=== PATIENT | male | born 1990 | race Caucasian/White ===

== ENCOUNTER 2019-12-03 06:11 | Day surgery (SDC) | payer SELFPAY ==
[2019-12-02 11:48] LABS: Absolute Lymphocytes (CBC) 1.4 K/uL (0.7-4.9); Basophils % 0.9 % (0-1.3); Hematocrit 44.6 % (39.6-49.0); MPV 7.4 fL (7.6-11.3); RBC Red Blood Cell Count 5.16 M/uL (4.33-5.43)
[2019-12-02 12:10] LABS: Potassium 4.3 mmol/L (3.5-5.1)
[2019-12-03] MEDS ORDERED: CEFAZOLIN/SWI 1gm 1 GM/10 ML SYR ONE (07:03)
[2019-12-03] MEDS ORDERED: Ringers Lactate 1,000 ML IV ONE (07:03)
[2019-12-03] MEDS ORDERED: MIDAZOLAM HCL 2 MG/2 ML INJ ONE (07:29)
[2019-12-03] MEDS ORDERED: propofoL 200 MG/20 ML VIAL IV ONE (07:36)
[2019-12-03] MEDS ORDERED: FENTANYL CITR 100 MCG/2 ML ONE ×2 (07:36→08:13)
[2019-12-03] MEDS ORDERED: LIDOCAINE 1% MPF 5 ML VIAL ONE (07:36)
[2019-12-03] MEDS ORDERED: KETOROLAC 30 MG/ML INJ ONE (07:42)
[2019-12-03] MEDS ORDERED: dexAMETHasone 10 MG/ML VIAL ONE (07:42)
[2019-12-03] MEDS ORDERED: ONDANSETRON 4 MG/2 ML VIAL ONE (07:52)
[2019-12-03] MEDS ORDERED: MORPHINE 10 MG/ML VIAL ONE (09:09)
[2019-12-03] MEDS: MEPERIDINE HCL 25 MG/ML SYR ONE ×2 (09:20→09:36)
--- NOTE | 2019-12-03 09:22 | P.BOP ---
Preoperative diagnosis: right fibular fx with syndesmosis disruption Postoperative diagnosis: same Primary procedure: right fibula orif with syndesmosis screw placement Estimated blood loss: 10 Anesthesia: General Complications: None Transferred to: Recovery Room Condition: Good
[2019-12-03 09:39] VITALS: TEMP 97.8; O2SAT 95
[2019-12-03 10:08] VITALS: BP 139/74
[2019-12-03] MEDS ORDERED: HYDROCODONE/APAP 10/325 TAB ONE (10:44)
--- NOTE | 2019-12-03 10:54 | OP ---
Date of Procedure: 12/03/2019 Surgeon: Michael Cason MD Preoperative Diagnosis: Right ankle syndesmosis disruption with fracture of the fibula. Postoperative Diagnosis: Right ankle syndesmosis disruption with fracture of the fibula. Procedure: Right fibula open reduction and internal fixation with placement of syndesmotic screw. Estimated Blood Loss: 10 cc. Complications: There were no complications. Specimens: No pathology specimens sent. Indications For Operation: Mr. Uriarte is a 29-year-old male, who came to see me shortly after he i njured his ankle on a trampoline. He was seen and examined in my office for he is found to have pain and swelling. However, the skin could easily wrinkle. X-rays were reviewed, which revealed a relat ively proximal fibular fracture as well as slight widening of the medial clear space. This is a Webe r C ankle fracture with unstable syndesmosis. Recommendation is for open reduction and internal fixa tion, possibly or possibly just simple syndesmotic fixation. This was presented to the patient and [address]. Unfortunately, this was delayed and now it is approximately two and half weeks from time of i njury. Risks, benefits, and alternatives to procedure has been discussed including the probability t hat we will have to open the fracture site. They said they understand things as presented and agreed to proceed. Description Of Procedure: The patient was taken to the operating room and placed in supine position. General anesthesia was obtained by the staff. Following this, a well-padded tourniquet placed on s uperior right thigh, however, is not used throughout the case. A bump was placed of the right hip. The right lower extremity was then prepped and draped in usual sterile fashion for the procedure. Af ter this, C-arm was brought in and the fracture site was marked out using a marking pen. The fibula did appear to be short. Also, there was slight widening of both syndesmosis as well as medial clear space. Attempted reduction did not generate complete closure of the medial clear space and appeared fibula was shortness and tethered. Therefore, decision was made to proceed with open reduction of th e fibula. A standard lateral incision was then made carefully through skin and soft tissue. Meticul ous hemostasis being maintained using Bovie electrocautery. The fibula at this level is quite deep a nd the fascia was divided. Great care was taken to identify and protect the superficial peroneal ner ve. This then progresses down to the bone in the fracture site. The fracture site itself was able t o be slightly pitted, however, definitely shortened with a good deal of soft callus as well as adhesi ons. Therefore, just clamping and ligating the fibula and placing a syndesmosis screw was felt to be insufficient. Therefore, the fracture site was completely cleaned and it was found to have a very l arge posterior fragment as well. After this completely clean, the clamp was brought in and we are ab le to mobilize it somewhat more distally with quite a bit of effort. Decision was made to proceed wi th a more distractive technique. A 6 hole 1/3 tubular plate was then applied with 1 screw distally. This being the second from the last. After this was applied, the clamp was then placed to obtain hi s good reduction as possible, but a bone hook was placed into 1 of the plate holes distally and a com bination of reduction techniques with a clamp as well as the bone hook and Hernandez techniques regarding the ankle was able to bring the fibula down quite a bit and another clamp was then applied more proxi karl. The plate is somewhat off the bone. However, this titanium plate was felt that we could brin g this down. A 2 screws were then placed superiorly, which appear to hold it quite well. After this , the C-arm is used to assess and it appeared that the medial clear space has now closed down signifi cantly and placed a Lama clamp and dorsiflexion appears to have anatomic clear space at that point. A 3 cortex 3.5 screw was then placed through the most distal hole, holding the foot in dorsiflexion. After this, final x-rays demonstrate good reduction of the mortise. The wound was gently irrigated and the skin was closed using 2-0 Vicryl sutures, followed by deuce. The patient was then placed in extremely well-padded sterile dressing as well as a posterior splint with a U. He is awakened and taken to recovery room in good condition. No complica tions. /MODL Voice ID: [id number] Report ID: [id number]
--- NOTE | 2019-12-03 13:35 | RAD REPORT ---
EXAM DESCRIPTION: RAD - Ankle Right 2 View - 12/03/2019 1:20 pm FINDINGS: There were 16 portable C-arm views obtained during fluoroscopic assisted placement of frac ture fixation hardware. No suspicious or unexpected findings. Fluoro time was 0.8 minutes. Cumulative dose was 1.43 mGy.
== END 2019-12-03 11:19 | disposition home or self-care (01) ==
LOC: OR 06:11
PROVIDERS: ATTEND Orthopaedic Surgery
PROC: 0QSJ04Z Reposition Right Fibula with Internal Fixation Device, Open Approach (ICD-10-PCS; principal; 2019-12-03 07:30)
DX: S82.61XA Displaced fracture of lateral malleolus of right fibula, initial encounter for closed fracture (principal); S93.431A Sprain of tibiofibular ligament of right ankle, initial encounter; Z11.59 Encounter for screening for other viral diseases
CPT/HCPCS: 36415; 80048; 85025; J0690; J1100; J2175; J2250; J2405; J2704; J3010; J7120; U0002

== ENCOUNTER 2021-03-20 12:35 | Emergency (ER) | payer SELFPAY ==
[2021-03-20 14:26] LABS: SARS-COV-2 RT PCR NEGATIVE (NEGATIVE)
[2021-03-20] MEDS ORDERED: HYDROCODONE/CHLORPHEN 5 ML/OSYR ONE (15:07)
--- NOTE | 2021-03-20 15:26 | RAD REPORT ---
EXAM DESCRIPTION: RAD - Chest Pa And Lat (2 Views) - 03/20/2021 3:14 pm CLINICAL HISTORY: COUGH COMPARISON: None TECHNIQUE: Frontal and lateral views of the chest were obtained. FINDINGS: The lungs are clear. Heart size is normal and central vasculature is within normal limit s. No pleural effusion or pneumothorax seen. No acute bony finding noted. No aortic abnormality. IMPRESSION: No acute cardiopulmonary process.
--- NOTE | 2021-03-20 15:47 | ER ---
Nurse's Notes [facility] Name: Eder Uriarte Age: 30 yrs Sex: Male : 1990 Arrival Date: 03/20/2021 Time: 12:39 Bed 9 Private MD: Diagnosis: Acute upper respiratory infection, unspecified Presentation: 03/20 13:00 Chief complaint: Patient states: Coughing, light headed/headache for a week and vg1 shortness of breath. Denies NVD. Coronavirus screen: Vaccine status: Patient reports receiving the 2nd dose of the covid vaccine. Client denies travel out of the [place] in the last 14 days. Ebola Screen: Patient negative for fever greater than or equal to 101.5 degrees Fahrenheit, and additional compatible Ebola Virus Disease symptoms. Initial Sepsis Screen: Does the patient meet any 2 criteria? RR > 20 per min. Does the patient have a suspected source of infection? No. Patient's initial sepsis screen is negative. Risk Assessment: Do you want to hurt yourself or someone else? Patient reports no desire to harm self or others. Onset of symptoms was March 13, 2021. 13:00 Method Of Arrival: Ambulatory vg1 13:00 Acuity: SARTHAK 4 vg1 Triage Assessment: 13:03 General: Appears in no apparent distress. uncomfortable, Behavior is calm, cooperative. vg1 Pain: Complains of pain in head Pain currently is 5 out of 10 on a pain scale. Respiratory: Reports shortness of breath at rest cough that is productive, Breath sounds are clear bilaterally. Historical: - Allergies: 13:03 No Known Allergies; vg1 - PMHx: 13:03 Asthma; vg1 - PSHx: 13:03 Metal plate Right leg; vg1 - Immunization history:: Client reports receiving the 2nd dose of the Covid vaccine. - Social history:: Smoking status: Patient denies any tobacco usage or history of. Screenin:00 Abuse screen: Denies threats or abuse. Nutritional screening: No deficits noted. jh6 Tuberculosis screening: No symptoms or risk factors identified. Fall Risk None identified. Assessment: 14:30 General: Appears in no apparent distress. Behavior is calm, cooperative. Respiratory: jh6 Reports cough that is non-productive, dry, persistent Respiratory effort is even, unlabored, Respiratory pattern is regular, Breath sounds are clear. Vital Signs: 13:00 BP 142 / 93; Pulse 96; Resp 22; Temp 98.1(O); Pulse Ox 96% on R/A; Weight 104.33 kg; vg1 Height 5 ft. 9 in. (175.26 cm); Pain 5/10; 15:17 BP 136 / 84; Pulse 86; Resp 20; Pulse Ox 97% on R/A; jh6 16:10 BP 130 / 82; Pulse 77; Resp 20; Temp 97.9(O); Pulse Ox 97% on R/A; jh6 13:00 Body Mass Index 33.96 (104.33 kg, 175.26 cm) vg1 ED Course: 12:39 Patient arrived in ED. mr 13:03 Triage completed. vg1 13:03 Arm band placed on. vg1 13:08 COVID swab sent to lab. Flu and/or RSV swab sent to lab. vg1 13:43 Heidi Coyne RN is Primary Nurse. jh6 13:46 Chevy Wlikins NP is PHCP. pm1 13:46 Vaughn Taylor MD is Attending Physician. pm1 14:22 Call light in reach. jh6 15:13 Chest Pa And Lat (2 Views) XRAY In Process Unspecified. EDMS 15:15 X-ray(s) taken. jh6 15:17 No provider procedures requiring assistance completed. jh6 15:18 Awaiting radiology results. jh6 16:00 No apparent distress. Pt reports that coughing is slightly better. States pain in jh6 throat is decreased. 16:10 Patient did not have IV access during this emergency room visit. 6 Administered Medications: 15:14 Drug: Tussionex Pennkinetic ER (chlorpheniramine-hydrocodone) Suspension 5 ml Route: PO;jh6 16:06 Follow up: Response: Other [facility] Outcome: 15:46 Discharge ordered by . pm1 16:28 Discharged to home ambulatory. jh6 16:28 Condition: improved 16:28 Discharge instructions given to patient, Instructed on discharge instructions, medication usage, Demonstrated understanding of instructions, follow-up care, medications, Prescriptions given X 3. 16:30 Patient left the ED. [facility] Signatures: Dispatcher [employer] EDAR Sandra Burrell mr Chevy Wilkins, WOOD PATTERN MAKER WOOD PATTERN MAKER pm1 Damari Mitchell RN RN vg1 Heidi Coyne, RN RN jh6
--- NOTE | 2021-03-20 15:47 | EDPHYS ---
Physician Documentation [facility] Name: Eder Uriarte Age: 30 yrs Sex: Male : 1990 Arrival Date: 03/20/2021 Time: 12:39 Bed 9 Private MD: ED Physician Vaughn Taylor HPI: 03/20 14:36 This 30 yrs old Male presents to ER via Ambulatory with complaints of Cough. pm1 14:36 The patient or guardian reports cough. Onset: The symptoms/episode began/occurred 1 pm1 week(s) ago. Severity of symptoms: in the emergency department the symptoms are actually worse. Modifying factors: The symptoms are alleviated by nothing, the symptoms are aggravated by nothing. Associated signs and symptoms: Pertinent positives: chest pain, with cough, sore throat, Pertinent negatives: diarrhea, fever, vomiting. The patient has not recently seen a physician. Historical: - Allergies: 13:03 No Known Allergies; vg1 - PMHx: 13:03 Asthma; vg1 - PSHx: 13:03 Metal plate Right leg; vg1 - Immunization history:: Client reports receiving the 2nd dose of the Covid vaccine. - Social history:: Smoking status: Patient denies any tobacco usage or history of. ROS: 14:36 Constitutional: Negative for fever, chills, and weight loss. pm1 14:36 Neck: Negative for injury, pain, and swelling. 14:36 Abdomen/GI: Negative for abdominal pain, nausea, vomiting, diarrhea, and constipation, Back: Negative for injury and pain, MS/Extremity: Negative for injury and deformity, Skin: Negative for injury, rash, and discoloration. 14:36 ENT: Positive for sore throat, Negative for drainage from ear(s), ear pain. 14:36 Cardiovascular: Positive for chest pain, with cough. 14:36 Respiratory: Positive for cough, shortness of breath, wheezing. 14:36 Neuro: Positive for headache. 14:36 All other systems are negative. Exam: 14:36 Constitutional: This is a well developed, well nourished patient who is awake, alert, pm1 and in no acute distress. Head/Face: Normocephalic, atraumatic. 14:36 Neck: Trachea midline, no thyromegaly or masses palpated, and no cervical lymphadenopathy. Supple, full range of motion without nuchal rigidity, or vertebral point tenderness. No Meningismus. 14:36 Back: No spinal tenderness. No costovertebral tenderness. Full range of motion. Skin: Warm, dry with normal turgor. Normal color with no rashes, no lesions, and no evidence of cellulitis. MS/ Extremity: Pulses equal, no cyanosis. Neurovascular intact. Full, normal range of motion. 14:36 ENT: External ear(s): are unremarkable, Ear canal(s): are normal, TM's: are normal, Mouth: no acute changes, Lips: normal, moist, Oral mucosa: normal, pink and intact, moist, Posterior pharynx: Tonsils: bilaterally enlarged, with erythema, no exudate, no ulcerations, erythema, that is moderate, exudate, is not appreciated, peritonsillar mass, is not appreciated. 14:36 Cardiovascular: Exam negative for acute changes, Rate: normal, Rhythm: regular, Pulses: no pulse deficits are appreciated, Heart sounds: normal, normal S1and S2. 14:36 Respiratory: Exam negative for acute changes, respiratory distress, shortness of breath, Breath sounds: are clear throughout. 14:36 Abdomen/GI: Exam negative for acute changes, Inspection: abdomen appears normal, Palpation: abdomen is soft and non-tender, in all quadrants. 14:36 Neuro: Exam negative for acute changes, Orientation: is normal, Mentation: is normal, Motor: is normal, moves all fours. Vital Signs: 13:00 BP 142 / 93; Pulse 96; Resp 22; Temp 98.1(O); Pulse Ox 96% on R/A; Weight 104.33 kg; vg1 Height 5 ft. 9 in. (175.26 cm); Pain 5/10; 15:17 BP 136 / 84; Pulse 86; Resp 20; Pulse Ox 97% on R/A; jh6 16:10 BP 130 / 82; Pulse 77; Resp 20; Temp 97.9(O); Pulse Ox 97% on R/A; jh6 13:00 Body Mass Index 33.96 (104.33 kg, 175.26 cm) vg1 MDM: 13:46 Patient medically screened. pm1 15:44 Data reviewed: vital signs. Data interpreted: Pulse oximetry: on room air is 97 %. pm1 Interpretation: normal. Counseling: I had a detailed discussion with the patient and/or guardian regarding: the historical points, exam findings, and any diagnostic results supporting the discharge/admit diagnosis, lab results, radiology results, the need for outpatient follow up, to return to the emergency department if symptoms worsen or persist or if there are any questions or concerns that arise at home. 15:47 ED course: [place] reviewed. pm1 03/20 13:06 Order name: COVID-19/FLU A+B (Document "Date of Onset" if Symptomatic); Complete Time: vg1 14:36 03/20 14:36 Order name: Strep; Complete Time: 15:38 pm1 03/20 14:36 Order name: Chest Pa And Lat (2 Views) XRAY; Complete Time: 15:38 pm1 03/20 15:29 Order name: Throat Culture EDMS Administered Medications: 15:14 Drug: Tussionex Pennkinetic ER (chlorpheniramine-hydrocodone) Suspension 5 ml Route: PO;[facility] 16:06 Follow up: Response: Other [facility] Disposition: 16:40 Co-signature as Attending Physician, Vaughn Taylor MD I agree with the assessment and rn plan of care. Attestation: The patient's history, exam findings, diagnostics, and a summary of any interventions or procedures was reviewed in detail with Chevy Wilkins NP. Disposition Summary: 03/20/21 15:46 Discharge Ordered Location: Home pm1 Problem: new pm1 Symptoms: have improved pm1 Condition: Stable pm1 Diagnosis - Acute upper respiratory infection, unspecified pm1 Followup: pm1 - With: Emergency Department - When: As needed - Reason: Worsening of condition Followup: pm1 - With: Private Physician - When: 2 - 3 days - Reason: Recheck today's complaints, Continuance of care, Re-evaluation by your physician Discharge Instructions: - Discharge Summary Sheet pm1 - Upper Respiratory Infection, Adult pm1 Forms: - Medication Reconciliation Form pm1 - Thank You Letter pm1 - Antibiotic Education pm1 - Prescription Opioid Use pm1 Prescriptions: - Guaifenesin AC 10-100 mg/5 mL Oral Liquid - take 10 milliliters by ORAL route every 4 hours As needed; 240 milliliter; pm1 Refills: 0, Product Selection Permitted - Ventolin HFA 90 mcg/actuation Inhalation HFA aerosol inhaler - inhale 1 puff by INHALATION route every 4-6 hours As needed; 1 Inhaler; pm1 Refills: 0, Product Selection Permitted - Medrol (Be) 4 mg Oral Tablets, Dose Pack - take 1 tablet by ORAL route as directed - follow package instructions; 1 pm1 packet; Refills: 0, Product Selection Permitted Signatures: Dispatcher [employer] Vaughn Walker MD MD rn Marinas, Patrick, NP FINAL INSPECTOR pm1 Damari Mitchell RN RN vg1 Heidi Coyne RN RN jh6
[2021-03-20 16:44] VITALS: O2SAT 97
[2021-03-20 16:46] VITALS: BP 130/82; TEMP 97.9
== END 2021-03-20 16:30 | disposition home or self-care (01) ==
LOC: ER 12:35
DX: J06.9 Acute upper respiratory infection, unspecified (principal); Z20.822 Contact with and (suspected) exposure to COVID-19
CPT/HCPCS: 0240U; 71046; 87070; 87081; 99284

== ENCOUNTER 2021-04-30 08:32 | Emergency (ER) | payer SELFPAY ==
--- NOTE | 2021-04-30 08:55 | ER ---
Nurse's Notes [facility] Name: Eder Uriarte Age: 30 yrs Sex: Male : 1990 Arrival Date: 04/30/2021 Time: 08:35 Bed Waiting Private MD: Diagnosis: ED Course: 04/30 08:35 Patient arrived in ED. mr Administered Medications: No medications were administered Outcome: 08:55 Patient left the ED. iw Signatures: Sandra Burrell Irene, RN RN iw
== END 2021-04-30 08:55 | disposition left against medical advice (07) ==
LOC: ER 08:32
DX: Z02.89 Encounter for other administrative examinations (principal)

== ENCOUNTER 2021-07-05 18:31 | Emergency (ER) | payer SELFPAY ==
[2021-07-05] MEDS ORDERED: KETOROLAC 30 MG/ML INJ ONE (18:46)
--- NOTE | 2021-07-05 19:43 | RAD REPORT ---
EXAM DESCRIPTION: RAD - Ankle Right 3 View - 07/05/2021 7:11 pm CLINICAL HISTORY: PAIN COMPARISON: Ankle Right 2 View dated 12/03/2019 FINDINGS: No fracture, dislocation or periosteal reaction. No joint effusion seen. No joint space na rrowing. Compression plate and screws are present along the lateral margin of the fibula from prior f racture repair. The fibular fracture is well healed. No fracture of the hardware. There is lucency ar ound the distal most bone screw in both the fibula and the tibia. Plantar or Achilles spur. No suspicious soft tissue finding. IMPRESSION: No acute bone or joint finding. No fracture or acute finding of the remote fracture fixation hardware. The bone lucency that surround s the distal most fixation screw does not necessarily represent a source for pain.
--- NOTE | 2021-07-05 19:45 | ER ---
Nurse's Notes [facility] Name: Eder Uriarte Age: 30 yrs Sex: Male : 1990 Arrival Date: 07/05/2021 Time: 18:34 Bed 15 Private MD: Diagnosis: Pain in right ankle and joints of right foot Presentation: 07/05 18:34 Chief complaint: Patient states: "I broke my ankle a year and a half ago and last week ab2 it started hurting so I got a cane but the pain is getting worse and my family told me to come in and get it checked.". Coronavirus screen: Vaccine status: Patient reports receiving the 2nd dose of the covid vaccine. Client denies travel out of the [place] in the last 14 days. At this time, the client does not indicate any symptoms associated with coronavirus-19. Ebola Screen: Patient negative for fever greater than or equal to 101.5 degrees Fahrenheit, and additional compatible Ebola Virus Disease symptoms Patient denies exposure to infectious person. Patient denies travel to an Ebola-affected area in the 21 days before illness onset. No symptoms or risks identified at this time. Initial Sepsis Screen: Does the patient meet any 2 criteria? No. Patient's initial sepsis screen is negative. Does the patient have a suspected source of infection? No. Patient's initial sepsis screen is negative. Risk Assessment: Do you want to hurt yourself or someone else? Patient reports no desire to harm self or others. Onset of symptoms is unknown. 18:34 Method Of Arrival: EMS: [facility] ab2 18:34 Acuity: SARTHAK 4 ab2 Historical: - Allergies: 18:37 No Known Allergies; ab2 - Home Meds: 18:37 None [Active]; ab2 - PMHx: 18:37 Asthma; ab2 - PSHx: 18:37 Metal plate Right leg; ab2 - Immunization history:: Adult Immunizations up to date. - Social history:: Smoking status: Patient denies any tobacco usage or history of. Screenin:39 Abuse screen: Denies threats or abuse. Denies injuries from another. Nutritional ab2 screening: No deficits noted. Tuberculosis screening: No symptoms or risk factors identified. Fall Risk None identified. Assessment: 18:37 General: Appears in no apparent distress. comfortable, Behavior is calm, cooperative, ab2 appropriate for age. Pain: Complains of pain in right ankle Pain does not radiate. Pain currently is 5 out of 10 on a pain scale. Neuro: No deficits noted. Level of Consciousness is awake, alert, obeys commands, Oriented to person, place, time, situation, Appropriate for age Tint Layer are equal bilaterally Moves all extremities. Gait is steady, Speech is normal, Facial symmetry appears normal. Cardiovascular: No deficits noted. Denies chest pain, shortness of breath, Patient's skin is warm and dry. Respiratory: No deficits noted. Airway is patent Respiratory effort is even, unlabored, Respiratory pattern is regular, symmetrical, Breath sounds are clear bilaterally. GI: No deficits noted. No signs and/or symptoms were reported involving the gastrointestinal system. Abdomen is round non-distended, Bowel sounds present X 4 quads. : No deficits noted. No signs and/or symptoms were reported regarding the genitourinary system. EENT: No deficits noted. No signs and/or symptoms were reported regarding the EENT system. Derm: No deficits noted. Musculoskeletal: Swelling present in right Achilles and right lateral malleolus Reports pain in right ankle. Vital Signs: 18:34 BP 142 / 89; Pulse 97; Resp 18; Temp 98.4(O); Pulse Ox 99% on R/A; Weight 113.4 kg; ab2 Height 5 ft. 11 in. (180.34 cm); Pain 5/10; 19:30 BP 131 / 78; Pulse 81; Resp 18; Pulse Ox 97% on R/A; ss7 18:34 Body Mass Index 34.87 (113.40 kg, 180.34 cm) ab2 ED Course: 18:34 Patient arrived in ED. ab2 18:37 Triage completed. ab2 18:38 Paul Sher PA is PHCP. cp 18:38 Vaughn Taylor MD is Attending Physician. cp 18:39 Arm band placed on right wrist. ab2 18:39 Patient has correct armband on for positive identification. Bed in low position. Call ab2 light in reach. Side rails up X2. 18:39 No provider procedures requiring assistance completed. ab2 18:40 Meghann Bradshaw, TAMIKO is Primary Nurse. ss7 19:11 XRAY Ankle RIGHT 3 view In Process Unspecified. EDMS 19:44 Michael Cason MD is Referral Physician. cp 19:44 Referral Physician role handed off by Michael Cason MD cp 19:44 Michael Cason MD is Referral Physician. cp 20:47 Patient did not have IV access during this emergency room visit. ss7 Administered Medications: 18:53 Drug: Ketorolac 60 mg Route: IM; Site: right vastus lateralis; ss7 Outcome: 19:44 Discharge ordered by . cp 20:47 Admitted to [facility] 20:47 Condition: good 20:47 Discharge instructions given to patient, Instructed on discharge instructions, follow up and referral plans. Demonstrated understanding of instructions, follow-up care, Prescriptions given X 1. 20:48 Patient left the ED. 7 Signatures: Dispatcher [employer] EDHI Paul Sher PA PA cp Bleininger, Alexis ab2 Meghann Bradshaw, RN RN ss7
--- NOTE | 2021-07-05 19:45 | EDPHYS ---
Physician Documentation [facility] Name: Eder Uriarte Age: 30 yrs Sex: Male : 1990 Arrival Date: 07/05/2021 Time: 18:34 Bed 15 Private MD: ED Physician Vaughn Taylor HPI: 07/05 18:45 This 30 yrs old Male presents to ER via EMS with complaints of Right Ankle Pain. cp 18:45 The patient presents with pain, that is chronic, tenderness. The complaints affect the cp lateral aspect right ankle. 18:45 Patient reports history of right ankle fracture with hardware placement by DR Cason cp over a year ago. Patient c/o increasing pain since last week. Denies recent injury. Reports he was told in the past that hardware had broke and that removal of hardware was an option. Historical: - Allergies: 18:37 No Known Allergies; ab2 - Home Meds: 18:37 None [Active]; ab2 - PMHx: 18:37 Asthma; ab2 - PSHx: 18:37 Metal plate Right leg; ab2 - Immunization history:: Adult Immunizations up to date. - Social history:: Smoking status: Patient denies any tobacco usage or history of. ROS: 18:50 MS/extremity: Positive for pain, tenderness, Negative for decreased range of motion, cp deformity, recent injury. 18:50 Constitutional: Negative for body aches, chills, fever, poor PO intake. cp 18:50 Neck: Negative for pain with movement, pain at rest. 18:50 Back: Negative for pain at rest, pain with movement. 18:50 Skin: Negative for rash. 18:50 Neuro: Negative for numbness, weakness. 18:50 All other systems are negative. Exam: 18:55 Constitutional: The patient appears in no acute distress, alert, non-toxic, well cp developed, well nourished. 18:55 Cardiovascular: Rate: normal. cp 18:55 Respiratory: the patient does not display signs of respiratory distress, Respirations: normal. 18:55 Back: pain, is absent, ROM is normal. 18:55 Musculoskeletal/extremity: Extremities: grossly normal except: noted in the right lateral malleolus: pain, tenderness, mild swelling, There is no evidence of decreased ROM, ROM: limited active range of motion due to pain, in the right ankle, Pulses: noted to be 2+ in the right dorsalis pedis artery, the right foot and right ankle Sensation intact. Achilles tendon palpated and itact. No pain to palpation noted proximal right fibula and/or base of right fifth metatarsal. 18:55 Skin: cellulitis, is not appreciated, on the right foot and right ankle, no rash present. on the right foot and right ankle. Vital Signs: 18:34 BP 142 / 89; Pulse 97; Resp 18; Temp 98.4(O); Pulse Ox 99% on R/A; Weight 113.4 kg; ab2 Height 5 ft. 11 in. (180.34 cm); Pain 5/10; 19:30 BP 131 / 78; Pulse 81; Resp 18; Pulse Ox 97% on R/A; ss7 18:34 Body Mass Index 34.87 (113.40 kg, 180.34 cm) ab2 MDM: 18:40 Patient medically screened. cp 19:38 Test interpretation: by ED physician or midlevel provider: xrays of right ankle cp negative for acute fracture, hardware appears intact. 19:44 Data reviewed: vital signs, nurses notes, radiologic studies, plain films. cp 19:44 Counseling: I had a detailed discussion with the patient and/or guardian regarding: the cp historical points, exam findings, and any diagnostic results supporting the discharge/admit diagnosis, radiology results, the need for outpatient follow up, a orthopedic surgeon, to return to the emergency department if symptoms worsen or persist or if there are any questions or concerns that arise at home. Response to treatment: Pain improved with meds. 07/05 18:40 Order name: XRAY Ankle RIGHT 3 view; Complete Time: 19:45 cp 07/05 19:37 Order name: Walking boot; Complete Time: 20:46 cp Administered Medications: 18:53 Drug: Ketorolac 60 mg Route: IM; Site: right vastus lateralis; ss7 Disposition Summary: 07/05/21 19:44 Discharge Ordered Location: Home cp Problem: an ongoing problem cp Symptoms: have improved cp Condition: Stable cp Diagnosis - Pain in right ankle and joints of right foot cp Followup: cp - With: Michael Cason MD - When: 2 - 3 days - Reason: Recheck today's complaints Followup: cp - With: Michael Cason MD - When: 1 week - Reason: pain continues Discharge Instructions: - Discharge Summary Sheet cp - Ankle Pain cp Forms: - Medication Reconciliation Form cp - Thank You Letter cp - Antibiotic Education cp - Prescription Opioid Use cp Prescriptions: - Diclofenac Sodium 75 mg Oral Tablet Sustained Release - take 1 tablet by ORAL route 2 times per day; 30 tablet; Refills: 0, Product cp Selection Permitted Signatures: Dispatcher [employer] EDUT Paul Sher PA PA cp Bleininger, Alexis ab2 Meghann Bradshaw, RN RN ss7
[2021-07-05 20:52] VITALS: TEMP 98.4
[2021-07-05 20:54] VITALS: BP 131/78; O2SAT 97
== END 2021-07-05 20:48 | disposition home or self-care (01) ==
LOC: ER 18:31
DX: M25.571 Pain in right ankle and joints of right foot (principal)
CPT/HCPCS: 96372; 99285

== ENCOUNTER 2021-09-20 22:48 | Emergency (ER) | payer SELFPAY ==
--- NOTE | 2021-09-21 01:08 | EDPHYS ---
Physician Documentation [facility] Name: Eder Uriarte Age: 30 yrs Sex: Male : 1990 Arrival Date: 09/20/2021 Time: 22:51 Bed DIS3 Private MD: ED Physician Obey Bach HPI: 09/21 19:46 This 30 yrs old Male presents to ER via EMS with complaints of Fever. kdr 19:46 The patient reports fever, not measured (subjective). Onset: The symptoms/episode kdr began/occurred gradually. Onset: The symptoms/episode began/occurred just prior to arrival. Modifying factors: Recent medications: none. Associated signs and symptoms: Pertinent positives:. 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 He was has last day reportedly and so he took advantage of numerous services as he was departing. He feels that the cumulative effects of those services may now have resulted in his poor feeling. Patient otherwise is stable and without any other acute medical issues. Patient does not appear toxic on initial presentation. He is awake alert and oriented and appropriate. Historical: - Allergies: 09/20 22:57 No Known Allergies; as6 - Home Meds: 22:57 None [Active]; as6 - PSHx: 22:57 Metal plate Right leg; as6 - Immunization history:: Client reports receiving the 2nd dose of the Covid vaccine. - Social history:: Smoking status: Patient denies any tobacco usage or history of. ROS: 09/21 19:46 Constitutional: Negative for weight loss, does report subjective fever and chills Eyes: kdr Negative for injury, pain, redness, and discharge, ENT: Negative for injury, pain, and discharge, Neck: Negative for injury, pain, and swelling, Cardiovascular: Negative for chest pain, palpitations, and edema, Respiratory: Negative for shortness of breath, cough, wheezing, and pleuritic chest pain, Abdomen/GI: Negative for abdominal pain, nausea, vomiting, diarrhea, and constipation, Back: Negative for injury and pain, : Negative for injury, bleeding, discharge, and swelling, MS/Extremity: Negative for injury and deformity, Skin: Negative for injury, rash, and discoloration, Neuro: Negative for headache, weakness, numbness, tingling, and seizure activity. Psych: Negative for depression, anxiety, suicide ideation, homicidal ideation, and hallucinations, Allergy/Immunology: Negative for hives, rash, and allergies, Endocrine: Negative for neck swelling, polydipsia, polyuria, polyphagia, and marked weight changes, Hematologic/Lymphatic: Negative for swollen nodes, abnormal bleeding, and unusual bruising. Exam: 19:46 Constitutional: This is a well developed, well nourished patient who is awake, alert, kdr and in no acute distress. Head/Face: Normocephalic, atraumatic. Eyes: Pupils equal round and reactive to light, extra-ocular motions intact. Lids and lashes normal. Conjunctiva and sclera are non-icteric and not injected. Cornea within normal limits. Periorbital areas with no swelling, redness, or edema. Neck: Trachea midline, no thyromegaly or masses palpated, and no cervical lymphadenopathy. Supple, full range of motion without nuchal rigidity, or vertebral point tenderness. No Meningismus. Chest/axilla: Normal chest wall appearance and motion. Nontender with no deformity. No lesions are appreciated. Cardiovascular: Regular rate and rhythm with a normal S1 and S2. No gallops, murmurs, or rubs. Normal PMI, no JVD. No pulse deficits. Respiratory: Lungs have equal breath sounds bilaterally, clear to auscultation and percussion. No rales, rhonchi or wheezes noted. No increased work of breathing, no retractions or nasal flaring. Abdomen/GI: Soft, non-tender, with normal bowel sounds. No distension or tympany. No guarding or rebound. No evidence of tenderness throughout. Back: No spinal tenderness. No costovertebral tenderness. Full range of motion. Skin: Warm, dry with normal turgor. Normal color with no rashes, no lesions, and no evidence of cellulitis. MS/ Extremity: Pulses equal, no cyanosis. Neurovascular intact. Full, normal range of motion. Neuro: Awake and alert, GCS 15, oriented to person, place, time, and situation. Cranial nerves II-XII grossly intact. Motor strength 5/5 in all extremities. Sensory grossly intact. Cerebellar exam normal. Normal gait. Psych: Awake, alert, with orientation to person, place and time. Behavior, mood, and affect are within normal limits. Vital Signs: 09/20 22:55 BP 128 / 67; Pulse 111; Resp 18 S; Temp 98.7(O); Pulse Ox 94% on R/A; Weight 112.49 kg as6 (R); Height 5 ft. 9 in. (175.26 cm) (R); Pain 2/10; 23:28 Temp 98.3(O); clementine 09/21 01:22 BP 117 / 79; Pulse 99; Resp 18; Temp 98.3(O); Pulse Ox 97% on R/A; as6 09/20 22:55 Body Mass Index 36.62 (112.49 kg, 175.26 cm) as6 MDM: 01:08 Patient medically screened. kdr 19:46 Data reviewed: vital signs, nurses notes, lab test result(s). ED course: Patient kdr improved with time and was discharged in good condition. He was happy with the care provided the plan for discharge and follow-up. 09/20 22:59 Order name: Influenza Screen (a \\T\\ B); Complete Time: 00:10 as6 09/20 23:01 Order name: Influenza Screen (A ; Complete Time: 00:10 EDDC 09/20 23:41 Order name: COVID-19 SARS RT PCR (Document "Date of Onset" if Symptomatic) tw5 Administered Medications: No medications were administered Disposition Summary: 09/21/21 01:08 Discharge Ordered Location: Home kdr Problem: new kdr Symptoms: have improved kdr Condition: Stable kdr Diagnosis - Fever, unspecified kdr - Myalgia kdr Followup: kdr - With: Private Physician - When: 2 - 3 days - Reason: If symptoms return, Further diagnostic work-up, Recheck today's complaints, Continuance of care, Re-evaluation by your physician Discharge Instructions: - Discharge Summary Sheet kdr - Musculoskeletal Pain kdr - Fever, Adult, [id number] kdr Forms: - Medication Reconciliation Form kdr - Thank You Letter kdr Prescriptions: - Ibuprofen 600 mg Oral Tablet - take 1 tablet by ORAL route every 6 hours As needed take with food; 15 tablet; kdr Refills: 0, Product Selection Permitted Signatures: Dispatcher [employer] EDDC Obey Bach MD MD kdr Giacomo Zimmerman RN RN as6 Corrections: (The following items were deleted from the chart) 09/20 22:58 22:57 PMHx: Asthma; as6 as6
--- NOTE | 2021-09-21 01:08 | ER ---
Nurse's Notes [facility] Name: Eedr Uriarte Age: 30 yrs Sex: Male : 1990 Arrival Date: 09/20/2021 Time: 22:51 Bed DIS3 Private MD: Diagnosis: Fever, unspecified;Myalgia Presentation: 09/20 22:55 Chief complaint: Patient states: "I have a fever, and then I'm hot and cold". as6 Coronavirus screen: Client presents with at least one sign or symptom that may indicate coronavirus-19. Standard/surgical mask placed on the client. Provider contacted for isolation considerations. Ebola Screen: No symptoms or risks identified at this time. Initial Sepsis Screen: Does the patient meet any 2 criteria? HR > 90 bpm. No. Patient's initial sepsis screen is negative. Does the patient have a suspected source of infection? No. Patient's initial sepsis screen is negative. Risk Assessment: Do you want to hurt yourself or someone else? Patient reports no desire to harm self or others. Onset of symptoms was September 20, 2021 at 22:00. 22:55 Method Of Arrival: EMS: [facility] as6 22:55 Acuity: SARTHAK 4 as6 Triage Assessment: 22:58 General: Appears in no apparent distress. Behavior is calm, cooperative, Reports chills as6 for fever for. Pain: Denies pain. Historical: - Allergies: 22:57 No Known Allergies; as6 - Home Meds: 22:57 None [Active]; as6 - PSHx: 22:57 Metal plate Right leg; as6 - Immunization history:: Client reports receiving the 2nd dose of the Covid vaccine. - Social history:: Smoking status: Patient denies any tobacco usage or history of. Screenin/25 01:23 Abuse screen: Denies threats or abuse. Denies injuries from another. Nutritional as6 screening: No deficits noted. Tuberculosis screening: No symptoms or risk factors identified. Fall Risk None identified. Assessment: 01:22 General: Appears in no apparent distress. Behavior is calm, cooperative, Reports chills as6 for fever for feeling ill for. Pain: Denies pain. Neuro: Level of Consciousness is awake, alert, obeys commands, Oriented to person, place, time, situation. Cardiovascular: JVD is absent Patient's skin is warm and dry. Respiratory: Respiratory effort is even, unlabored, Respiratory pattern is regular, symmetrical. Vital Signs: 09/20 22:55 BP 128 / 67; Pulse 111; Resp 18 S; Temp 98.7(O); Pulse Ox 94% on R/A; Weight 112.49 kg as6 (R); Height 5 ft. 9 in. (175.26 cm) (R); Pain 2/10; 23:28 Temp 98.3(O); clementine 09/21 01:22 BP 117 / 79; Pulse 99; Resp 18; Temp 98.3(O); Pulse Ox 97% on R/A; as6 09/20 22:55 Body Mass Index 36.62 (112.49 kg, 175.26 cm) as6 ED Course: 09/20 22:51 Patient arrived in ED. ja2 22:57 Triage completed. as6 22:58 Arm band placed on. as6 23:28 Valery Larsen, RN is Primary Nurse. clementine 23:41 Obey Bach MD is Attending Physician. kdr 09/21 01:23 Bed in low position. as6 01:23 No provider procedures requiring assistance completed. Patient did not have IV access as6 during this emergency room visit. Administered Medications: No medications were administered Medication: 01:23 VIS not applicable for this client. as6 Outcome: 01:08 Discharge ordered by . kdr 01:23 Discharged to home ambulatory. as6 01:23 Condition: stable 01:23 Discharge instructions given to patient, Instructed on discharge instructions, follow up and referral plans. medication usage, Demonstrated understanding of instructions, follow-up care, medications, Prescriptions given X 1. 01:24 Patient left the ED. as6 Signatures: Obey Bach MD MD kdr Alexander, Jessica ja2 Giacomo Zimmerman RN RN as6 Valery Larsen, TAMIKO spring Corrections: (The following items were deleted from the chart) 09/20 22:58 22:57 PMHx: Asthma; as6 as6
[2021-09-21 01:29] VITALS: TEMP 98.3
[2021-09-21 01:31] VITALS: BP 117/79; O2SAT 97
== END 2021-09-21 01:24 | disposition home or self-care (01) ==
LOC: ER 22:48
DX: M79.10 Myalgia, unspecified site (principal); Z20.822 Contact with and (suspected) exposure to COVID-19
CPT/HCPCS: 87804; 99283; U0003

== ENCOUNTER 2022-01-21 14:31 | Emergency (ER) | payer SELFPAY ==
--- NOTE | 2022-01-21 15:35 | RAD REPORT ---
EXAM DESCRIPTION: RAD - Ankle Left 3 View - 01/21/2022 3:27 pm CLINICAL HISTORY: PAIN COMPARISON: No comparisons FINDINGS: Soft tissue swelling is seen about the ankle, greatest laterally. No acute fracture seen.
--- NOTE | 2022-01-21 15:41 | ER ---
Nurse's Notes [facility] Name: Eder Uriarte Age: 31 yrs Sex: Male : 1990 Arrival Date: 01/21/2022 Time: 14:34 Bed 11 Private MD: Diagnosis: Sprain of ankle Presentation: 01/21 14:43 Chief complaint: Rolled ankle while crossing street yesterday, c/o left ankle pain hb 3/10. Coronavirus screen: At this time, the client does not indicate any symptoms associated with coronavirus-19. Ebola Screen: No symptoms or risks identified at this time. Initial Sepsis Screen: Does the patient meet any 2 criteria? No. Patient's initial sepsis screen is negative. Does the patient have a suspected source of infection? No. Patient's initial sepsis screen is negative. Risk Assessment: Do you want to hurt yourself or someone else? Patient reports no desire to harm self or others. Onset of symptoms was January 20, 2022. 14:43 Method Of Arrival: Wheelchair hb 14:43 Acuity: SARTHAK 4 hb Historical: - Allergies: 14:44 No Known Allergies; hb - Home Meds: 14:44 None [Active]; hb - PMHx: 14:44 None; hb - PSHx: 14:44 Metal plate Right leg; hb - Immunization history:: Adult Immunizations up to date. - Social history:: Smoking status: Patient denies any tobacco usage or history of. Screenin:45 Abuse screen: Denies threats or abuse. Nutritional screening: No deficits noted. bm7 Tuberculosis screening: No symptoms or risk factors identified. Fall Risk None identified. Assessment: 15:45 Reassessment: No changes from previously documented assessment. Patient and/or family bm7 updated on plan of care and expected duration. Pain level reassessed. Patient is alert, oriented x 3, equal unlabored respirations, skin warm/dry/pink. Vital Signs: 14:43 BP 120 / 86; Pulse 81; Resp 16; Temp 97.3; Pulse Ox 100% on R/A; Weight 110.22 kg; hb Height 5 ft. 9 in. (175.26 cm); Pain 3/10; 15:45 BP 132 / 80; Pulse 82; Resp 16; Pulse Ox 100% on R/A; Pain 3/10; bm7 14:43 Body Mass Index 35.88 (110.22 kg, 175.26 cm) ED Course: 14:34 Patient arrived in ED. rg4 14:35 [facility]C [facility] kb 14:35 Vaughn Taylor MD is Attending Physician. kb 14:44 Triage completed. hb 14:44 Arm band placed on. hb 15:28 Ankle Left 3 View XRAY In Process Unspecified. EDMS 15:45 Patient has correct armband on for positive identification. Call light in reach. bm7 15:45 No provider procedures requiring assistance completed. Patient did not have IV access bm7 during this emergency room visit. Administered Medications: 15:35 Drug: Ibuprofen 800 mg Route: PO; bm7 15:41 Follow up: Response: Pain is decreased bm7 Medication: 15:45 VIS not applicable for this client. bm7 Outcome: 15:41 Discharge ordered by MD. kb 15:45 Discharged to home ambulatory. bm7 15:45 Condition: good 15:45 Discharge instructions given to patient, Instructed on discharge instructions, follow up and referral plans. Demonstrated understanding of instructions, follow-up care. 15:47 Patient left the ED. bm7 Signatures: Dispatcher [employer] EDMT Jaymie Fox FNP-C FNP-Ckb Baxter, Heather, RN RN Sahra Mitchell rg4 Elzbieta Harvey, RN RN bm7
--- NOTE | 2022-01-21 15:41 | EDPHYS ---
Physician Documentation [facility] Name: Eder Uriarte Age: 31 yrs Sex: Male : 1990 Arrival Date: 01/21/2022 Time: 14:34 Bed 11 Private MD: ED Physician Vaughn Taylor HPI: 01/21 15:16 This 31 yrs old Male presents to ER via Wheelchair with complaints of Foot Injury. kb 15:15 The patient has not experienced similar symptoms in the past. The patient has not kb recently seen a physician. Pt was crossing the street yesterday when the light turned green so he started running and twisted his ankle causing him to fall. c/o pain to left ankle since then. Has been able to ambulate without assist, but has been wearing a boot and using a cane because it decreases the pain. Came in to make sure it wasn't broken. 15:16 The patient presents with pain. The complaints affect the left ankle. Onset: The kb symptoms/episode began/occurred yesterday. Context: The problem was sustained outdoors, resulted from twisted and fell, The patient can fully bear weight on the affected extremity. the patient is able to ambulate. Associated signs and symptoms: The patient has no apparent associated signs or symptoms. Modifying factors: The symptoms are alleviated by nothing, the symptoms are aggravated by weight bearing, movement. Severity of symptoms: At their worst the symptoms were moderate, in the emergency department the symptoms are unchanged. Historical: - Allergies: 14:44 No Known Allergies; hb - Home Meds: 14:44 None [Active]; hb - PMHx: 14:44 None; hb - PSHx: 14:44 Metal plate Right leg; hb - Immunization history:: Adult Immunizations up to date. - Social history:: Smoking status: Patient denies any tobacco usage or history of. ROS: 15:16 Constitutional: Negative for fever, chills, and weight loss. kb 15:16 MS/extremity: Positive for pain, of the left lateral ankle and left medial ankle. 15:16 All other systems are negative. Exam: 15:16 Constitutional: This is a well developed, well nourished patient who is awake, alert, kb and in no acute distress. Head/Face: Normocephalic, atraumatic. ENT: Moist Mucous membranes Cardiovascular: Regular rate and rhythm with a normal S1 and S2. No gallops, murmurs, or rubs. No pulse deficits. Respiratory: Respirations even and unlabored. No increased work of breathing. Talking in full sentences Abdomen/GI: Soft, non-tender. No distention Skin: Warm, dry with normal turgor. Normal color. Neuro: Awake and alert, GCS 15, oriented to person, place, time, and situation. Moves all extremities. Normal gait. Psych: Awake, alert, with orientation to person, place and time. Behavior, mood, and affect are within normal limits. 15:16 Musculoskeletal/extremity: Extremities: grossly normal except: noted in the left medial ankle and left lateral ankle: pain, ROM: intact in all extremities, Circulation is intact in all extremities. Sensation intact. Weight bearing: able to fully bear weight. Vital Signs: 14:43 BP 120 / 86; Pulse 81; Resp 16; Temp 97.3; Pulse Ox 100% on R/A; Weight 110.22 kg; hb Height 5 ft. 9 in. (175.26 cm); Pain 3/10; 15:45 BP 132 / 80; Pulse 82; Resp 16; Pulse Ox 100% on R/A; Pain 3/10; bm7 14:43 Body Mass Index 35.88 (110.22 kg, 175.26 cm) hb MDM: 14:40 Patient medically screened. kb 15:40 Data reviewed: vital signs, nurses notes. Data interpreted: Pulse oximetry: on room air kb is 100 %. Interpretation: normal. Counseling: I had a detailed discussion with the patient and/or guardian regarding: the historical points, exam findings, and any diagnostic results supporting the discharge/admit diagnosis, radiology results, the need for outpatient follow up, a orthopedic surgeon, to return to the emergency department if symptoms worsen or persist or if there are any questions or concerns that arise at home. 01/21 14:43 Order name: Ankle Left 3 View XRAY; Complete Time: 15:40 kb Administered Medications: 15:35 Drug: Ibuprofen 800 mg Route: PO; bm7 15:41 Follow up: Response: Pain is decreased bm7 Disposition: 16:58 Co-signature as Attending Physician, Vaughn Tyalor MD. rn Disposition Summary: 01/21/22 15:41 Discharge Ordered Location: Home kb Condition: Stable kb Diagnosis - Sprain of ankle kb Followup: kb - With: Emergency Department - When: As needed - Reason: Worsening of condition Followup: kb - With: Private Physician - When: 2 - 3 days - Reason: Recheck today's complaints, Continuance of care, Re-evaluation by your physician Discharge Instructions: - Discharge Summary Sheet kb - Ankle Sprain, [id number] kb Forms: - Medication Reconciliation Form kb - Thank You Letter kb - Antibiotic Education kb - Prescription Opioid Use kb Signatures: Dispatcher [employer] EDMS Jaymie Fox, INSURANCE LAW SPECIALIST-C INSURANCE LAW SPECIALIST-Darrylb Vaughn Taylor MD MD rn Baxter, Heather, RN RN Elzbieta Harvey, RN RN bm7
[2022-01-21] MEDS ORDERED: IBUPROFEN 400 MG TAB ONE (15:43)
[2022-01-23 02:53] VITALS: TEMP 97.3; O2SAT 100
[2022-01-23 02:56] VITALS: BP 132/80
== END 2022-01-21 15:47 | disposition home or self-care (01) ==
LOC: ER 14:31
DX: S93.402A Sprain of unspecified ligament of left ankle, initial encounter (principal)
CPT/HCPCS: 99283

== ENCOUNTER 2022-03-10 19:27 | Emergency (ER) | payer SELFPAY ==
--- NOTE | 2022-03-10 21:51 | RAD REPORT ---
EXAM DESCRIPTION: RAD - Chest Pa And Lat (2 Views) - 03/10/2022 9:45 pm CLINICAL HISTORY: COUGH COMPARISON: Chest Pa And Lat (2 Views) dated 03/20/2021 FINDINGS: Lines: None. Lungs: No evidence of edema or pneumonia. Pleural: No significant pleural effusions or pneumothorax. Cardiac: The heart size is within normal limits. Mediastinum: Within normal limits. Bones: No acute fractures. Other: None IMPRESSION: No acute cardiopulmonary disease.
[2022-03-10] MEDS ORDERED: METHYLPREDNISOLONE 125 MG INJ ONE (22:13)
[2022-03-10] MEDS ORDERED: IPRATROPIUM BROM 0.5MG/2.5ML ONE (22:13)
[2022-03-10] MEDS ORDERED: ALBUTEROL 2.5 MG/3 ML NEB SOL ONE (22:13)
[2022-03-10 22:45] LABS: Absolute Lymphocytes (CBC) 1.7 K/uL (0.7-4.9); Hematocrit 43.7 % (39.6-49.0); Lymphocytes % 38.7 % (15.3-44.8); MCV 87.8 fL (80-100); MPV 7.1 fL (7.6-11.3); RBC Red Blood Cell Count 4.98 M/uL (4.33-5.43)
[2022-03-10 23:15] LABS: Protime INR 1.02
[2022-03-10 23:22] LABS: SARS-COV-2 RT PCR NEGATIVE (NEGATIVE)
[2022-03-10 23:56] LABS: Bilirubin Direct 0.2 mg/dL (0-0.2); Bilirubin Total 0.7 mg/dL (0.2-1.0); Potassium 3.4 mmol/L (3.5-5.1); Protein, Total 7.6 g/dL (6.4-8.2); Troponin High Sensitivity 8.8 pg/mL (<58.9)
[2022-03-11] MEDS ORDERED: HYDROCODONE/CHLORPHEN 5 ML/OSYR ONE (00:15)
--- NOTE | 2022-03-11 00:16 | EDPHYS ---
Physician Documentation [facility] Name: Eder Uriarte Age: 31 yrs Sex: Male : 1990 Arrival Date: 03/10/2022 Time: 19:38 Bed 23 Private MD: ED Physician Paul Savage HPI: 03/10 21:15 This 31 yrs old Male presents to ER via EMS with complaints of Shortness Of Breath. cp 21:15 The patient has shortness of breath at rest. Onset: The symptoms/episode began/occurred cp yesterday. 21:15 Associated signs and symptoms: Pertinent positives: chest pain, cough times 1 week, cp Pertinent negatives: diaphoresis, vomiting. Severity of symptoms: in the emergency department the symptoms are unchanged despite home interventions. Historical: - Allergies: 19:40 No Known Allergies; iw - PSHx: 23:57 Metal plate Right leg; em6 - Immunization history:: Adult Immunizations unknown. - Social history:: Smoking status: unknown. ROS: 21:20 Constitutional: Positive for body aches, Negative for fever, poor PO intake. cp 21:20 Eyes: Negative for injury, pain, redness, and discharge. cp 21:20 ENT: Negative for drainage from ear(s), ear pain, difficulty swallowing, difficulty handling secretions. 21:20 Cardiovascular: Positive for chest pain, with cough, Negative for edema, palpitations. 21:20 Respiratory: Positive for cough, "sounds productive", shortness of breath. 21:20 Abdomen/GI: Negative for abdominal pain, vomiting, diarrhea, constipation. 21:20 Skin: Negative for rash. 21:20 Neuro: Negative for altered mental status, headache, syncope, weakness. 21:20 All other systems are negative. Exam: 21:25 Constitutional: The patient appears in no acute distress, alert, awake, cp non-diaphoretic, non-toxic, well developed, well nourished, overweight 21:25 Head/Face: Normocephalic, atraumatic. cp 21:25 Eyes: Periorbital structures: appear normal, Conjunctiva: normal, no exudate, no injection, Sclera: no appreciated abnormality, Lids and lashes: appear normal, bilaterally. 21:25 ENT: External ear(s): are unremarkable, Ear canal(s): are normal, clear, TM's: dullness, bilaterally, Nose: is normal, Mouth: Lips: moist, Oral mucosa: pink and intact, moist, Posterior pharynx: Airway: no evidence of obstruction, patent, Tonsils: with erythema, no enlargement, no exudate, erythema, that is mild, exudate, is not appreciated. 21:25 Neck: ROM/movement: is normal, is supple, without pain, no range of motions limitations, no meningismus. 21:25 Chest/axilla: Inspection: normal, Palpation: is normal, no crepitus, no tenderness. 21:25 Cardiovascular: Rate: normal, Rhythm: regular, Edema: is not appreciated, JVD: is not appreciated. 21:25 Respiratory: the patient does not display signs of respiratory distress, Respirations: normal, no use of accessory muscles, no retractions, Breath sounds: bronchial sounds, that are mild, are heard diffusely, decreased breath sounds, are not appreciated, stridor, is not appreciated, + upper airway congestion. 21:25 Abdomen/GI: Inspection: abdomen appears normal, Palpation: abdomen is soft and non-tender, in all quadrants. 21:25 Back: pain, is absent, ROM is normal. 21:25 Skin: no rash present. 21:25 Neuro: Orientation: to person, place \\T\\ time. Mentation: is normal, Motor: moves all fours, strength is normal, Sensation: is normal. 22:38 ECG was reviewed by the Attending Physician. cp Vital Signs: 19:38 BP 139 / 88; Pulse 86; Resp 24; Temp 97.6; Pulse Ox 97% on R/A; Weight 104.33 kg; iw Height 5 ft. 9 in. (175.26 cm); Pain 7/10; 22:00 BP 116 / 72; Pulse 73; Resp 18; Pulse Ox 99% on R/A; em6 23:59 BP 127 / 79; Pulse 89; Resp 18; Pulse Ox 94% on R/A; em6 03/11 00:32 Pulse Ox 95% on R/A; tw5 03/10 19:38 Body Mass Index 33.96 (104.33 kg, 175.26 cm) iw MDM: 03/10 19:48 Patient medically screened. [facility] 03/11 00:15 Data reviewed: vital signs, nurses notes, lab test result(s), EKG, radiologic studies, cp plain films. 00:15 Differential diagnosis: asthma, Bronchitis Myocardial Infarction pneumonia, pulmonary cp edema, Pulmonary Embolism. Test interpretation: by ED physician or midlevel provider: ECG, plain radiologic studies. Counseling: I had a detailed discussion with the patient and/or guardian regarding: the historical points, exam findings, and any diagnostic results supporting the discharge/admit diagnosis, lab results, radiology results, the need for outpatient follow up, a family practitioner, to return to the emergency department if symptoms worsen or persist or if there are any questions or concerns that arise at home. 03/10 21:08 Order name: Basic Metabolic Panel; Complete Time: 00:03 03/11 00:03 Interpretation: Normal except: K 3.4; CL 108. 03/10 21:08 Order name: CBC with Diff; Complete Time: 23:01 03/10 23:01 Interpretation: Normal except: MPV 7.1; MN% 13.2. 03/10 21:08 Order name: D-Dimer; Complete Time: 23:45 03/10 21:08 Order name: LFT's; Complete Time: 00:03 03/11 00:04 Interpretation: Normal except: AST 68; ALT 96; GLOB 3.6. 03/10 21:08 Order name: Magnesium; Complete Time: 00:03 03/11 00:04 Interpretation: MG 2.0; Reviewed. 03/10 21:08 Order name: NT PRO-BNP; Complete Time: 00:03 03/11 00:04 Interpretation: NT PRO-BNP 54; Reviewed. 03/10 21:08 Order name: PT-INR; Complete Time: 23:45 03/10 21:08 Order name: Troponin HS; Complete Time: 00:03 03/11 00:04 Interpretation: Reviewed. 03/10 21:08 Order name: EKG; Complete Time: 21:09 03/10 21:08 Order name: XRAY Chest Pa And Lat (2 Views); Complete Time: 22:00 03/10 22:00 Interpretation: Report reviewed. 03/10 21:08 Order name: COVID-19/FLU A+B (Document "Date of Onset" if Symptomatic); Complete Time: cp 23:45 03/10 23:45 Interpretation: INFLUENZA A POSITIVE; Reviewed. 03/10 21:08 Order name: Cardiac monitoring; Complete Time: 22:35 cp 03/10 21:08 Order name: EKG - Nurse/Tech; Complete Time: 22:35 cp 03/10 21:08 Order name: IV Saline Lock; Complete Time: 22:35 cp 03/10 21:08 Order name: Labs collected and sent; Complete Time: 22:29 cp 03/10 21:08 Order name: O2 Per Protocol; Complete Time: 22:35 cp 03/10 21:08 Order name: O2 Sat Monitoring; Complete Time: 22:35 cp 03/10 23:46 Order name: Misc. Order: ambulate w/o oygen and monitor sats cp EC/11 22:38 Rate is 73 beats/min. Rhythm is regular. NM interval is normal. QRS interval is normal. cp QT interval is normal. T waves are Inverted in lead aVR. Interpreted by me. Reviewed by me. Administered Medications: 22:29 Drug: Albuterol - atroVENT (ipratropium) (3:1) (2.5 mg - 0.5 mg) 3 ml Route: Nebulizer; em6 23:00 Follow up: Response: No adverse reaction em6 22:29 Drug: SOLU-Medrol (methylPrednisoLONE) 125 mg Route: IVP; Site: right wrist; em6 23:00 Follow up: Response: No adverse reaction em6 03/11 00:17 Drug: Tussionex Pennkinetic ER (chlorpheniramine-hydrocodone) Suspension 5 ml Route: PO;tw5 00:31 Follow up: Response: No adverse reaction; Pain is decreased tw5 Disposition Summary: 03/11/22 00:15 Discharge Ordered Location: Home cp Problem: new cp Symptoms: have improved cp Condition: Stable cp Diagnosis - Influenza due to identified novel influenza A virus with other respiratory cp manifestations - Unspecified asthma with (acute) exacerbation cp Followup: cp - With: Private Physician - When: 2 - 3 days - Reason: Recheck today's complaints Discharge Instructions: - Discharge Summary Sheet cp - Asthma, Adult cp - Influenza, Adult cp Forms: - Medication Reconciliation Form cp - Thank You Letter cp - Antibiotic Education cp - Prescription Opioid Use cp Prescriptions: - Albuterol Sulfate 2.5 mg /3 mL (0.083 %) Inhalation Solution for Nebulization - inhale 1 unit by NEBULIZATION route every 8 hours As needed; 1 box; Refills: 0, cp Product Selection Permitted - Zithromax Z-Be 250 mg Oral Tablet - take 1 tablet by ORAL route as directed for 5 days Day 1 - take two (2) tablets cp one time. Day 2, 3, 4 , 5 take one (1) tablet once daily.; 6 tablet; Refills: 0, Product Selection Permitted - Bromfed DM 2-30-10 mg/5 mL Oral syrup - take 10 milliliter by ORAL route every 6 hours; 180 milliliter; Refills: 0, cp Product Selection Permitted - Prednisone 20 mg Oral Tablet - take 2 tablets by ORAL route once daily for 5 days; 10 tablet; Refills: 0, cp Product Selection Permitted Addendum: 03/16/2022 09:54 Co-signature as Attending Physician, Paul Savage MD I agree with the assessment and c betts plan of care. Signatures: Dispatcher [employer] EDWV Paul Savage MD MD cha Williams, Irene, RN RN iw Paul Sher PA PA Yarelis Campbell tw5 Barbara Maloney RN RN em6 Corrections: (The following items were deleted from the chart) 03/10 23:45 23:45 Reviewed. cp cp
--- NOTE | 2022-03-11 00:16 | ER ---
Nurse's Notes [facility] Name: Eder Uriarte Age: 31 yrs Sex: Male : 1990 Arrival Date: 03/10/2022 Time: 19:38 Bed 23 Private MD: Diagnosis: Influenza due to identified novel influenza A virus with other respiratory manifestations;Unspecified asthma with (acute) exacerbation Presentation: 03/10 19:38 Chief complaint: Cough, congestion, low back pain, and malaise x 1 week, SOB since iw yesterday. Coronavirus screen: Client presents with at least one sign or symptom that may indicate coronavirus-19. Standard/surgical mask placed on the client. Provider contacted for isolation considerations. Ebola Screen: No symptoms or risks identified at this time. Risk Assessment: Do you want to hurt yourself or someone else? Patient reports no desire to harm self or others. Onset of symptoms was March 03, 2022. 19:38 Method Of Arrival: EMS: [facility] iw 19:38 Acuity: SARTHAK 3 iw 22:00 Initial Sepsis Screen: Does the patient meet any 2 criteria? No. Patient's initial em6 sepsis screen is negative. Does the patient have a suspected source of infection? No. Patient's initial sepsis screen is negative. Triage Assessment: 22:00 General: Appears in no apparent distress. Respiratory: the patient has moderate em6 shortness of breath. Respiratory: Onset: The symptoms/episode began/occurred 03/04/22. Historical: - Allergies: 19:40 No Known Allergies; iw - PSHx: 23:57 Metal plate Right leg; em6 - Immunization history:: Adult Immunizations unknown. - Social history:: Smoking status: unknown. Screenin:00 Abuse screen: Denies threats or abuse. Nutritional screening: No deficits noted. em6 Tuberculosis screening: No symptoms or risk factors identified. Fall Risk IV access (20 points). Total Ann Fall Scale indicates No Risk (0-24 pts). Assessment: 22:00 General: Appears comfortable, Behavior is cooperative. Pain: Denies pain. Neuro: Level em6 of Consciousness is awake, alert, obeys commands, Oriented to person, place, time, situation. Cardiovascular: Heart tones present Patient's skin is warm and dry. Rhythm is sinus rhythm. Respiratory: Reports shortness of breath cough that is productive, Airway is patent Respiratory effort is even, unlabored, Respiratory pattern is regular, symmetrical, Breath sounds are clear bilaterally. GI: Abdomen is non-distended, Abd is soft and non tender X 4 quads. : No signs and/or symptoms were reported regarding the genitourinary system. EENT: No signs and/or symptoms were reported regarding the EENT system. Derm: No signs and/or symptoms reported regarding the dermatologic system. Musculoskeletal: Circulation, motion, and sensation intact. Range of motion: intact in all extremities. 23:00 Reassessment: Patient appears in no apparent distress at this time. No changes from em6 previously documented assessment. Patient and/or family updated on plan of care and expected duration. Pain level reassessed. Patient is alert, oriented x 3, equal unlabored respirations, skin warm/dry/pink. Vital Signs: 19:38 BP 139 / 88; Pulse 86; Resp 24; Temp 97.6; Pulse Ox 97% on R/A; Weight 104.33 kg; iw Height 5 ft. 9 in. (175.26 cm); Pain 7/10; 22:00 BP 116 / 72; Pulse 73; Resp 18; Pulse Ox 99% on R/A; em6 23:59 BP 127 / 79; Pulse 89; Resp 18; Pulse Ox 94% on R/A; em6 03/11 00:32 Pulse Ox 95% on R/A; tw5 03/10 19:38 Body Mass Index 33.96 (104.33 kg, 175.26 cm) iw ED Course: 03/10 19:38 Patient arrived in ED. iw 19:40 Triage completed. iw 19:40 Arm band placed on. iw 19:46 Paul Sher PA is PHCP. cp 19:47 Paul Savage MD is Attending Physician. cp 21:47 XRAY Chest Pa And Lat (2 Views) In Process Unspecified. EDMS 22:00 Placed in gown. Bed in low position. Call light in reach. Side rails up X2. Cardiac em6 monitor on. Pulse ox on. NIBP on. Warm blanket given. 22:00 Inserted saline lock: 22 gauge in right antecubital area, using aseptic technique. em6 Blood collected. 22:09 Barbara Maloney, RN is Primary Nurse. em6 22:29 COVID-19/FLU A+B (Document "Date of Onset" if Symptomatic) Sent. em6 03/11 00:31 No provider procedures requiring assistance completed. IV discontinued, intact, tw5 bleeding controlled, No redness/swelling at site. Pressure dressing applied. Administered Medications: 03/10 22:29 Drug: Albuterol - atroVENT (ipratropium) (3:1) (2.5 mg - 0.5 mg) 3 ml Route: Nebulizer; em6 23:00 Follow up: Response: No adverse reaction em6 22:29 Drug: SOLU-Medrol (methylPrednisoLONE) 125 mg Route: IVP; Site: right wrist; em6 23:00 Follow up: Response: No adverse reaction em6 03/11 00:17 Drug: Tussionex Pennkinetic ER (chlorpheniramine-hydrocodone) Suspension 5 ml Route: PO;tw5 00:31 Follow up: Response: No adverse reaction; Pain is decreased tw5 Medication: 03/10 23:58 VIS not applicable for this client. em6 Outcome: 03/11 00:15 Discharge ordered by . cp 00:32 Discharged to home ambulatory. tw5 00:32 Condition: stable 00:32 Discharge instructions given to patient, Instructed on discharge instructions, follow up and referral plans. medication usage, Demonstrated understanding of instructions, follow-up care, medications, Prescriptions given X 4. 00:32 Patient left the ED. tw5 Signatures: Dispatcher [employer] Nieves Bailey RN RN iw Page, Corey, PA PA cp Wood, Tiffany tw5 Barbara Maloney RN RN em6
[2022-03-11 01:18] VITALS: TEMP 97.6
[2022-03-11 01:21] VITALS: BP 127/79
[2022-03-11 01:22] VITALS: O2SAT 95
--- NOTE | 2022-03-13 15:12 | EKG ---
Test Date: 2022-03-10 Test Time: 22:32:56 Medical File Clerk: MEASUREMENT RESULTS: Intervals: Rate: 73 VT: 156 QRSD: 90 QT: 404 QTc: 445 [place]: P: 60 VT: 156 QRS: 29 T: 36 INTERPRETIVE STATEMENTS: Normal sinus rhythm Cannot rule out Anterior infarct, age undetermined Abnormal ECG No previous ECG available for comparison Electronically Signed On 03-13-22 15:09:47 BUTTON CLAMPER by Wolfgang Chappell
== END 2022-03-11 00:32 | disposition home or self-care (01) ==
LOC: ER 19:27
DX: J10.1 Influenza due to other identified influenza virus with other respiratory manifestations (principal); J45.901 Unspecified asthma with (acute) exacerbation; Z20.822 Contact with and (suspected) exposure to COVID-19
CPT/HCPCS: 0240U; 36415; 71046; 80048; 80076; 83735; 83880; 84484; 85025; 85379; 85610; 93005; 94640; 96374; 99285; J2930; J7644

== ENCOUNTER 2023-01-16 06:24 | Emergency (ER) | payer SELFPAY ==
[2023-01-16] MEDS ORDERED: FAMOTIDINE 20 MG/2 ML VIAL IV ONE (07:27)
[2023-01-16] MEDS ORDERED: MAGNES/ALUMIN/SIMET 30ML UCUP ONE (07:27)
[2023-01-16 07:35] LABS: Lymphocytes % 35.2 % (15.3-44.8); MCV 88.2 fL (80-100); MPV 7.3 fL (7.6-11.3); Platelets 274 thou/uL (152-406); RBC Red Blood Cell Count 4.87 M/uL (4.33-5.43)
[2023-01-16 07:51] LABS: Albumin 3.8 g/dL (3.4-5.0); Bilirubin Total 0.8 mg/dL (0.2-1.0); Potassium 3.6 mEq/L (3.5-5.1); Protein, Total 7.2 g/dL (6.4-8.2)
--- NOTE | 2023-01-16 08:40 | ER ---
Nurse's Notes [facility] Name: Eder Uriarte Age: 32 yrs Sex: Male : 1990 Arrival Date: 01/16/2023 Time: 06:24 Bed 2 Private MD: Diagnosis: Gastro-esophageal reflux disease without esophagitis Presentation: 01/16 06:39 Chief complaint: Patient states: "I think I have a hiatal hernia" pt states it has been as6 going on for years. pt c/o heart burn and occasional vomiting. Coronavirus screen: At this time, the client does not indicate any symptoms associated with coronavirus-19. Ebola Screen: No symptoms or risks identified at this time. Initial Sepsis Screen: Does the patient meet any 2 criteria? No. Patient's initial sepsis screen is negative. Does the patient have a suspected source of infection? No. Patient's initial sepsis screen is negative. Risk Assessment: Do you want to hurt yourself or someone else? Patient reports no desire to harm self or others. Onset of symptoms is unknown. 06:39 Acuity: SARTHAK 3 as6 06:39 Method Of Arrival: Ambulatory as6 Historical: - Allergies: 06:39 No Known Allergies; as6 - PMHx: 06:39 Asthma; as6 - PSHx: 06:39 Metal plate Right leg; as6 - Immunization history:: Client reports receiving the 2nd dose of the Covid vaccine. - Social history:: Smoking status: Patient denies any tobacco usage or history of. - Family history:: not pertinent. - Hospitalizations: : No recent hospitalization is reported. Screenin:26 [facility] ED Fall Risk Assessment (Adult) History of falling in the last 3 months, kc6 including since admission No falls in past 3 months (0 pts) Confusion or Disorientation No (0 pts) Intoxicated or Sedated No (0 pts) Impaired Gait No (0 pts) Mobility Assist Device Used No (0 pt) Altered Elimination No (0 pt) Score/Fall Risk Level 0 - 2 = Low Risk. Abuse screen: Denies threats or abuse. Denies injuries from another. Nutritional screening: No deficits noted. Tuberculosis screening: No symptoms or risk factors identified. Assessment: 07:27 General: Appears in no apparent distress. comfortable, Behavior is calm, cooperative, kc6 appropriate for age. Pain: Complains of pain in epigastric area Pain currently is 4 out of 10 on a pain scale. Neuro: Level of Consciousness is awake, alert, obeys commands, Oriented to person, place, time, situation, Appropriate for age. Cardiovascular: Capillary refill < 3 seconds. Respiratory: Airway is patent Trachea midline Respiratory effort is even, unlabored, Respiratory pattern is regular, symmetrical. GI: Abdomen is flat, non-distended, Reports nausea, vomiting, Patient currently denies diarrhea. : No signs and/or symptoms were reported regarding the genitourinary system. EENT: No signs and/or symptoms were reported regarding the EENT system. Derm: No signs and/or symptoms reported regarding the dermatologic system. Skin is intact, is healthy with good turgor, Skin is pink, warm \\T\\ dry. Musculoskeletal: No signs and/or symptoms reported regarding the musculoskeletal system. Circulation, motion, and sensation intact. Capillary refill < 3 seconds, Range of motion: intact in all extremities. 08:20 Reassessment: Patient appears in no apparent distress at this time. No changes from kc6 previously documented assessment. Patient and/or family updated on plan of care and expected duration. Pain level reassessed. Patient is alert, oriented x 3, equal unlabored respirations, skin warm/dry/pink. Vital Signs: 06:38 BP 161 / 97; Pulse 92; Resp 18 S; Temp 97.7(TE); Pulse Ox 98% on R/A; Weight 104.33 kg as6 (R); Height 5 ft. 9 in. (R); Pain 2/10; 08:20 BP 139 / 86; Pulse 82; Resp 16 S; Pulse Ox 98% on R/A; kc6 06:38 Body Mass Index 33.96 (104.33 kg, 175.26 cm) as6 06:38 Pain Scale: Adult as6 ED Course: 06:27 Patient arrived in ED. rg4 06:38 Arm band placed on. as6 06:45 Triage completed. as6 06:56 Vaughn Taylor MD is Attending Physician. rn 07:12 Manjula Valadez RN is Primary Nurse. kc6 07:26 Inserted saline lock: 20 gauge in right antecubital area, using aseptic technique. kc6 Blood collected. 07:27 Patient has correct armband on for positive identification. Bed in low position. Call kc6 light in reach. Side rails up X 1. Client placed on continuous cardiac and pulse oximetry monitoring. NIBP monitoring applied. 08:38 Mario Mcpherson MD is Referral Physician. rn 08:56 No provider procedures requiring assistance completed. IV discontinued, intact, ld1 bleeding controlled, No redness/swelling at site. Administered Medications: 07:26 Drug: Famotidine IVP 20 mg IVP once; dilute with 10 mL 0.9% NaCl; give over 2 minutes kc6 Route: IVP; Site: right antecubital; 08:05 Follow up: Response: No adverse reaction kc6 07:26 Drug: GI Cocktail without - (Maalox PO 30 ml, Lidocaine Mucous Membrane 2 % 15 kc6 ml) PO once Route: PO; 08:05 Follow up: Response: No adverse reaction kc6 Medication: 08:56 VIS not applicable for this client. ld1 Outcome: 08:39 Discharge ordered by MD. rn 08:56 Discharged to home ambulatory, ld1 08:56 Condition: stable 08:56 Discharge instructions given to patient, Instructed on discharge instructions, follow up and referral plans. medication usage, Demonstrated understanding of instructions, follow-up care, medications, Prescriptions given X 1, 08:56 Patient left the ED. ld1 Signatures: Vaughn Taylor MD MD rn Garcia, Rubi rg4 aMryana Castellanos RN RN ld1 Giacomo Zimmerman RN RN as6 Manjula Valadez RN RN kc6
--- NOTE | 2023-01-16 08:40 | EDPHYS ---
Physician Documentation [facility] Name: Eder Uriarte Age: 32 yrs Sex: Male : 1990 Arrival Date: 01/16/2023 Time: 06:24 Bed 2 Private MD: ED Physician Vaughn Taylor HPI: 01/16 07:49 This 32 yrs old Male presents to ER via Ambulatory with complaints of Hernia. rn 07:49 The patient presents to the emergency department with Acid reflux. rn 07:50 Onset: The symptoms/episode began/occurred Years ago. Possible causes: unknown. The rn symptoms are aggravated by nothing. The symptoms are alleviated by nothing. Associated signs and symptoms: Pertinent positives: belching, Pertinent negatives: abdominal pain, GI bleeding, nausea, vomiting. Severity of symptoms: At their worst the symptoms were mild in the emergency department the symptoms are unchanged. The patient has experienced similar episodes in the past, chronically. The patient has not recently seen a physician. Patient reports has had years of acid reflux, takes Pepcid at home, denies any hematemesis or dark stool or blood in stool. No gross changes recently but family member told him to come see a doctor so came here. Has not seen GI. No fever. No chest pain or shortness of breath.. Historical: - Allergies: 06:39 No Known Allergies; as6 - PMHx: 06:39 Asthma; as6 - PSHx: 06:39 Metal plate Right leg; as6 - Immunization history:: Client reports receiving the 2nd dose of the Covid vaccine. - Social history:: Smoking status: Patient denies any tobacco usage or history of. - Family history:: not pertinent. - Hospitalizations: : No recent hospitalization is reported. ROS: 07:50 Constitutional: Negative for fever, chills, and weight loss, Neck: Negative for injury, rn pain, and swelling, Cardiovascular: Negative for chest pain, palpitations, and edema, Respiratory: Negative for shortness of breath, cough, wheezing, and pleuritic chest pain, Abdomen/GI: Positive for acid reflux and heartburn Back: Negative for injury and pain, MS/Extremity: Negative for injury and deformity, Skin: Negative for injury, rash, and discoloration, Neuro: Negative for headache, weakness, numbness, tingling, and seizure, Exam: 07:50 Constitutional: This is a well developed, well nourished patient who is awake, alert, rn and in no acute distress. Cardiovascular: Regular rate and rhythm. No pulse deficits. Respiratory: No increased work of breathing, no retractions or nasal flaring. Abdomen/GI: Soft, non-tender Skin: Warm, dry MS/ Extremity: Pulses equal, no cyanosis. Neuro: Awake and alert, GCS 15 Vital Signs: 06:38 BP 161 / 97; Pulse 92; Resp 18 S; Temp 97.7(TE); Pulse Ox 98% on R/A; Weight 104.33 kg as6 (R); Height 5 ft. 9 in. (R); Pain 2/10; 08:20 BP 139 / 86; Pulse 82; Resp 16 S; Pulse Ox 98% on R/A; kc6 06:38 Body Mass Index 33.96 (104.33 kg, 175.26 cm) as6 06:38 Pain Scale: Adult as6 MDM: 06:57 Patient medically screened. rn 08:38 Differential diagnosis: Nonspecific abd pain, gastritis, Hiatal hernia, GERD. Data rn reviewed: vital signs, nurses notes, lab test result(s), and as a result, I will discharge patient. Counseling: I had a detailed discussion with the patient and/or guardian regarding the historical points, exam findings, and any diagnostic results supporting the discharge/admit diagnosis, lab results, the need for outpatient follow up, to return to the emergency department if symptoms worsen or persist or if there are any questions or concerns that arise at home. Response to treatment: the patient's symptoms have mildly improved after treatment, and as a result, I will discharge patient. Special discussion: I discussed with the patient/guardian in detail that at this point there is no indication for admission to the hospital. It is understood, however, that if the symptoms persist or worsen the patient needs to return immediately for re-evaluation. Based on the history and exam findings, there is no indication for further emergent testing or inpatient evaluation. I discussed with the patient/guardian the need to see the mammal keeper for further evaluation of the symptoms. ED course: Patient improved, stable vital signs, story consistent with chronic GERD, spoke with him and told him hiatal hernia is a possibility as well as early ulcer formation. No evidence of bleeding at this time. Needs to follow-up with GI for scope. Will DC home with Protonix prescription and given return precautions.. 01/16 07:11 Order name: CBC with Diff; Complete Time: 07:57 rn 01/16 07:11 Order name: CMP; Complete Time: 07:57 rn 01/16 07:11 Order name: Lipase; Complete Time: 07:57 rn 01/16 07:11 Order name: IV Start; Complete Time: 07:26 rn Administered Medications: 07:26 Drug: Famotidine IVP 20 mg IVP once; dilute with 10 mL 0.9% NaCl; give over 2 minutes kc6 Route: IVP; Site: right antecubital; 08:05 Follow up: Response: No adverse reaction kc6 07:26 Drug: GI Cocktail without - (Maalox PO 30 ml, Lidocaine Mucous Membrane 2 % 15 kc6 ml) PO once Route: PO; 08:05 Follow up: Response: No adverse reaction kc6 Disposition Summary: 01/16/23 08:39 Discharge Ordered Notes: Location: Home rn Problem: new rn Symptoms: have improved rn Condition: Stable rn Diagnosis - Gastro-esophageal reflux disease without esophagitis rn Followup: rn - With: Mario Mcpherson MD - When: As needed - Reason: Recheck today's complaints, Re-evaluation by your physician Discharge Instructions: - Discharge Summary Sheet rn - Food Choices for Gastroesophageal Reflux Disease, Adult rn - Gastroesophageal Reflux Disease, Adult rn Forms: - Medication Reconciliation Form rn - Thank You Letter rn - Antibiotic journal box inspector - Prescription Opioid Use rn - Patient Portal Instructions rn - Leadership Thank You Letter rn Prescriptions: - Protonix 40 mg Oral Tablet - take 1 tablet ORAL route once daily; 30 tablet; Refills: 0, Product Selection rn Permitted Signatures: Dispatcher [employer] Vaughn Walker MD MD rn Slawson, Ashby, RN RN [email or web address] Manjula Valadez RN RN kc6
[2023-01-16 09:55] VITALS: TEMP 97.7; O2SAT 98
[2023-01-16 09:57] VITALS: BP 139/86
== END 2023-01-16 08:56 | disposition home or self-care (01) ==
LOC: ER 06:24
DX: K21.9 Gastro-esophageal reflux disease without esophagitis (principal)
CPT/HCPCS: 36415; 80053; 83690; 85025

== ENCOUNTER 2023-03-16 18:44 | Emergency (ER) | payer SELFPAY ==
[2023-03-16] MEDS ORDERED: IBUPROFEN 400 MG TAB ONE (19:25)
--- NOTE | 2023-03-16 19:37 | RAD REPORT ---
EXAM DESCRIPTION: RAD - Knee Right 3 View - 03/16/2023 7:13 pm CLINICAL HISTORY: PAIN COMPARISON: No comparisons FINDINGS: No acute fracture or dislocation is seen. No joint effusion evident. Moderate soft tissue swelling is seen anterior knee.
--- NOTE | 2023-03-16 19:51 | ER ---
Nurse's Notes [facility] Name: Eder Uriarte Age: 32 yrs Sex: Male : 1990 Arrival Date: 03/16/2023 Time: 18:44 Bed 12 Private MD: Diagnosis: Pain in right knee Presentation: 03/16 18:53 Chief complaint: Patient states: Right knee pain, fall last Sunday. Able to ambulate nj with cane, but painful. Has not had anything for pain today. Coronavirus screen: Vaccine status: Patient reports receiving the 2nd dose of the covid vaccine. Ebola Screen: Patient denies travel to an Ebola-affected area in the 21 days before illness onset. Initial Sepsis Screen: Does the patient meet any 2 criteria? HR > 90 bpm. No. Patient's initial sepsis screen is negative. Does the patient have a suspected source of infection? No. Patient's initial sepsis screen is negative. Risk Assessment: Do you want to hurt yourself or someone else? Patient reports no desire to harm self or others. Onset of symptoms was March 09, 2023. 18:53 Method Of Arrival: Ambulatory [facility] 18:53 Acuity: SARTHAK 3 [facility] Triage Assessment: 19:00 General: Appears in no apparent distress. comfortable, Behavior is calm, cooperative, nj appropriate for age. Pain: Complains of pain in right knee Pain currently is 3 out of 10 on a pain scale. at worst was 8 out of 10 on a pain scale. Neuro: Level of Consciousness is awake, alert, obeys commands, Oriented to person, place, time, situation. Cardiovascular: Patient's skin is warm and dry. Respiratory: Airway is patent Respiratory effort is even, unlabored. Musculoskeletal: Reports pain in right knee since falling a week ago. Pain is 3 out of 10 on a pain scale. 20:02 Injury Description: fall. ha1 Historical: - Allergies: 18:55 No Known Allergies; nj1 - PMHx: 18:55 Asthma; nj1 - PSHx: 18:55 Metal plate Right leg; nj1 - Immunization history:: Client reports receiving the 2nd dose of the Covid vaccine. - Social history:: Smoking status: Patient denies any tobacco usage or history of. Screenin:02 [facility] ED Fall Risk Assessment (Adult) Score/Fall Risk Level 0 - 2 = Low Risk [facility] Oriented to surroundings, Maintained a safe environment, Hourly rounding (assess needs \T\ fall precautionary measures) done. Abuse screen: Denies threats or abuse. Denies injuries from another. Nutritional screening: No deficits noted. Tuberculosis screening: No symptoms or risk factors identified. Assessment: 18:56 General: Appears uncomfortable, Behavior is calm, cooperative. Pain: Complains of pain ha1 in right leg and right knee Pain does not radiate. Pain currently is 8 out of 10 on a pain scale. Quality of pain is described as throbbing, Pain began suddenly. Neuro: Level of Consciousness is awake, alert, obeys commands, Oriented to person, place, time, situation. Cardiovascular: Patient's skin is warm and dry. Respiratory: Airway is patent Respiratory effort is even, unlabored, Respiratory pattern is regular, symmetrical. GI: No signs and/or symptoms were reported involving the gastrointestinal system. : No signs and/or symptoms were reported regarding the genitourinary system. Derm: Skin is pink, warm \T\ dry. Musculoskeletal: Circulation, motion, and sensation intact. Reports pain in right knee. 20:03 Reassessment: Patient and/or family updated on plan of care and expected duration. Pain ha1 level reassessed. Patient is alert, oriented x 3, equal unlabored respirations, skin warm/dry/pink. Patient states feeling better. Patient states symptoms have improved. Vital Signs: 18:53 BP 134 / 100; Pulse 97; Resp 18; Temp 98.5; Pulse Ox 97% ; Weight 114.76 kg; Height 5 nj1 ft. 9 in. ; Pain 3/10; 19:10 BP 132 / 95; Pulse 95; Resp 17 S; Pulse Ox 97% on R/A; ha1 18:53 Body Mass Index 37.36 (114.76 kg, 175.26 cm) wv1 18:53 Pain Scale: Adult [facility] ED Course: 18:46 Patient arrived in ED. mr 18:52 Paul Sher PA is PHCP. cp 18:53 Paul Savage MD is Attending Physician. cp 18:55 Triage completed. nj1 18:56 Arm band placed on left wrist. nj1 19:02 Patient has correct armband on for positive identification. Bed in low position. Call [facility] light in reach. 19:14 XRAY Knee RIGHT 3 view In Process Unspecified. EDMS 19:33 Nidhi Cerrato, RN is Primary Nurse. ha1 19:50 Elvis Burnett MD is Referral Physician. cp 20:00 No provider procedures requiring assistance completed. Patient did not have IV access ha1 during this emergency room visit. 20:01 Provided Education on: following up with orthopedic . ha1 Administered Medications: 19:14 Drug: Ibuprofen PO 800 mg PO once Route: PO; nj1 20:03 Follow up: Response: No adverse reaction; Pain is decreased ha1 Medication: 19:37 VIS not applicable for this client. ha1 Outcome: 19:51 Discharge ordered by . cp 20:01 Discharged to home ambulatory, ha1 20:01 Condition: stable 20:01 Discharge instructions given to patient, Instructed on discharge instructions, follow up and referral plans. medication usage, Demonstrated understanding of instructions, follow-up care, medications, Prescriptions given X 1, 20:03 Patient left the ED. ha1 Signatures: Dispatcher [employer] EDWA Sandra Burrell, Reg Reg mr Paul Sher, JUAN DIEGO PA cp Nidhi Cerrato, RN RN ha1 Lay Mckeon RN RN nj1
--- NOTE | 2023-03-16 19:51 | EDPHYS ---
Physician Documentation [facility] Name: Eder Uriarte Age: 32 yrs Sex: Male : 1990 Arrival Date: 03/16/2023 Time: 18:44 Bed 12 Private MD: Paul Quispe HPI: 03/16 19:05 This 32 yrs old Male presents to ER via Ambulatory with complaints of Knee Injury. cp 19:05 The patient presents with pain, that is acute. cp 19:05 The complaints affect the right knee. cp 19:05 Context: resulted from the patient falling, the patient can partially bear weight, the cp patient is able to ambulate, with moderate difficulty, can ambulate using a cane. Onset: The symptoms/episode began/occurred last week. Modifying factors: the symptoms are aggravated by weight bearing, bending knee. Associated signs and symptoms: Pertinent negatives calf tenderness, fever, numbness. Historical: - Allergies: 18:55 No Known Allergies; nj1 - PMHx: 18:55 Asthma; nj1 - PSHx: 18:55 Metal plate Right leg; nj1 - Immunization history:: Client reports receiving the 2nd dose of the Covid vaccine. - Social history:: Smoking status: Patient denies any tobacco usage or history of. ROS: 19:10 MS/extremity: Positive for pain, tenderness, of the right knee, Negative for decreased cp range of motion, deformity, 19:10 Constitutional: Negative for fever, cp 19:10 Neck: Negative for pain with movement, pain at rest, stiffness, 19:10 Back: Negative for pain at rest, pain with movement, 19:10 Neuro: Negative for numbness, weakness, 19:10 All other systems are negative, Exam: 19:10 Constitutional: The patient appears in no acute distress, alert, awake, well developed, cp well nourished, overweight 19:10 Head/Face: Normocephalic, atraumatic. cp 19:10 Neck: ROM/movement: is normal, is supple, without pain, no range of motions limitations, 19:10 Chest/axilla: Inspection: normal, 19:10 Back: pain, is absent, ROM is normal, 19:10 Musculoskeletal/extremity: Extremities: grossly normal except: noted in the right knee: pain, tenderness along medial and lateral joint line, There is no evidence of decreased ROM, deformity, ROM: limited passive range of motion due to pain, in the right knee, Perfusion: the extremity is normally perfused throughout, the right leg Sensation intact. 19:10 Skin: warm, dry, intact. Vital Signs: 18:53 BP 134 / 100; Pulse 97; Resp 18; Temp 98.5; Pulse Ox 97% ; Weight 114.76 kg; Height 5 nj1 ft. 9 in. ; Pain 3/10; 19:10 BP 132 / 95; Pulse 95; Resp 17 S; Pulse Ox 97% on R/A; ha1 18:53 Body Mass Index 37.36 (114.76 kg, 175.26 cm) nj1 18:53 Pain Scale: Adult nj1 MDM: 18:58 Patient medically screened. cp 19:50 Data reviewed: vital signs, nurses notes, radiologic studies, plain films, and as a cp result, I will discharge patient. 19:50 Differential diagnosis: dislocation, closed fracture, contusion, tendonitis. I cp considered the following discharge prescriptions or medication management in the emergency department Medications were administered in the Emergency Department. See MAR. Counseling: I had a detailed discussion with the patient and/or guardian regarding the historical points, exam findings, and any diagnostic results supporting the discharge/admit diagnosis, radiology results. 03/16 18:58 Order name: XRAY Knee RIGHT 3 view; Complete Time: 19:50 cp 03/16 19:50 Interpretation: Report reviewed. cp Administered Medications: 19:14 Drug: Ibuprofen PO 800 mg PO once Route: PO; nj 20:03 Follow up: Response: No adverse reaction; Pain is decreased ha1 Disposition Summary: 03/16/23 19:51 Discharge Ordered Notes: Location: Home cp Problem: new cp Symptoms: have improved cp Condition: Stable cp Diagnosis - Pain in right knee cp Followup: cp - With: Elvis Burnett MD - When: 2 - 3 days - Reason: Recheck today's complaints Discharge Instructions: - Discharge Summary Sheet cp - Elastic Bandage and RICE Therapy cp - How to Use a Knee Brace cp - Acute Knee Pain, Adult cp Forms: - Medication Reconciliation Form cp - Thank You Letter cp - Antibiotic Education cp - Prescription Opioid Use cp - Patient Portal Instructions cp - Leadership Thank You Letter cp Prescriptions: - Diclofenac Sodium 75 mg Oral Tablet Sustained Release - take 1 tablet ORAL route 2 times per day; 30 tablet; Refills: 0, Product cp Selection Permitted Signatures: Dispatcher [employer] EDMS Paul Sher PA PA cp Lay Mckeon RN RN nj1 Nidhi Cerrato RN ha1 Corrections: (The following items were deleted from the chart) 03/17 18:01 03/16 19:05 Context: resulted from the patient falling, the patient can partially bear cp weight, the patient is able to ambulate, with moderate difficulty, cp 03/17 18:24 03/16 19:10 Constitutional: The patient appears in no acute distress, alert, awake, cp cp
[2023-03-16 20:13] VITALS: TEMP 98.5; O2SAT 97
[2023-03-16 20:15] VITALS: BP 132/95
== END 2023-03-16 20:03 | disposition home or self-care (01) ==
LOC: ER 18:44
DX: M25.561 Pain in right knee (principal)
CPT/HCPCS: 99283

== ENCOUNTER 2023-11-07 15:34 | Emergency (ER) | payer SELFPAY ==
[2023-11-07] MEDS ORDERED: TDAP (DIPHTH,PERTUSS(ACELL),TET VAC) 0.5 ML VIAL IMVAC ONE (16:31)
--- NOTE | 2023-11-07 16:35 | RAD REPORT ---
EXAM DESCRIPTION: RAD - Foot Right 3 View - 11/07/2023 4:28 pm CLINICAL HISTORY: puncture wound COMPARISON: No comparisons FINDINGS/IMPRESSION: No acute fracture. No malalignment. No significant focal degenerative changes. Plate and screw at the distal fibula. No radiopaque foreign body.
--- NOTE | 2023-11-07 16:43 | EDPHYS ---
Physician Documentation [facility] Name: Eder Uriarte Age: 33 yrs Sex: Male : 1990 Arrival Date: 11/07/2023 Time: 15:34 Bed 13 Private MD: ED Physician Vaughn Taylor HPI: 11/06 16:35 This 33 yrs old Male presents to ER via Ambulatory with complaints of Stepped On Nail. pm1 16:35 The patient presents with pain, that is acute. The complaints affect the left foot. pm1 Context: The problem was sustained outdoors, resulted from the patient stepping on a nail, while not wearing shoes, patient was wearing slippers but his foot slipped out and he stepped on the nail with his bare foot the patient can fully bear weight, the patient is able to ambulate. Onset: The symptoms/episode began/occurred today. Modifying factors: the symptoms are aggravated by nothing. Associated signs and symptoms: Pertinent negatives: fever, numbness, swelling, tingling. Severity of symptoms: in the emergency department the symptoms are unchanged. The patient has not experienced similar symptoms in the past. The patient has not recently seen a physician. Historical: - Allergies: 16:01 No Known Allergies; tl4 - Home Meds: 16:01 None [Active]; tl4 - PMHx: 16:01 Asthma; tl4 - PSHx: 16:01 Metal plate Right leg; tl4 - Immunization history:: Last tetanus immunization: unknown. - Infectious Disease History:: Denies. - Social history:: Smoking status: Patient denies any tobacco usage or history of. Patient/guardian denies using alcohol, street drugs. ROS: 16:35 MS/extremity: Positive for pain, of the ball of right foot, pm1 16:35 Constitutional: Negative for fever, chills, and weight loss, 16:35 Skin: Positive for puncture, of the ball of right foot, 16:35 All other systems are negative, Exam: 16:35 Constitutional: This is a well developed, well nourished patient who is awake, alert, pm1 and in no acute distress. Head/Face: Normocephalic, atraumatic. 16:35 Musculoskeletal/extremity: Exam is negative for acute changes, 16:35 Skin: Appearance: normal except for affected area, small puncture wound present to ball of right foot, 16:35 Neuro: Exam negative for acute changes, Vital Signs: 15:57 BP 148 / 93; Pulse 80; Resp 16; Temp 97.8(TE); Pulse Ox 97% on R/A; Weight 108.86 kg; tl4 Height 5 ft. 9 in. ; Pain 1/10; 15:57 Body Mass Index 35.44 (108.86 kg, 175.26 cm) tl4 15:57 Pain Scale: Adult tl4 MDM: 16:06 Patient medically screened. pm1 16:38 Data reviewed: vital signs. pm1 16:38 Differential diagnosis: puncture wound, laceration, foreign body. pm1 16:41 Care significantly affected by the following Social Determinants of Health: Poor access pm1 to healthcare and/or lack of insurance. 16:41 Counseling: I had a detailed discussion with the patient and/or guardian regarding the pm1 historical points, exam findings, and any diagnostic results supporting the discharge/admit diagnosis, radiology results, the need for outpatient follow up, a orthopedic surgeon, a inspector tester sorter, to return to the emergency department if symptoms worsen or persist or if there are any questions or concerns that arise at home. 11/06 16:06 Order name: XRAY Foot RIGHT 3 View; Complete Time: 16:38 pm1 11/06 16:44 Order name: Wound Care: Clean wound; Complete Time: 16:46 pm1 Administered Medications: 16:34 Drug: Tetanus-Diphtheria Toxoid IM Adult 0.5 ml IM once; Provide Vaccine Information mb9 Statement (VIS). {Health And Physical Education Professor: Informative; Exp: SunMay 15 2025; Lot #: [id number]; Series: 1 of 1; Patient Consent: Obtained; Date/Time: ; Source Name: Eder Uriarte; Source Relationship: Self; Address Information: [facility] [address] [place] [address], [facility] [address]; ; Education: Provided; VIS Presented Date: ; VIS Publication: Tetanus/Diphtheria (Td) VIS 06/03/2013 (historic)} Route: IM; Site: right deltoid; 16:46 Follow up: Response: No adverse reaction mb9 16:54 Drug: Ciprofloxacin PO 500 mg PO once Route: PO; mb9 17:04 Follow up: Response: No adverse reaction mb9 Disposition: 18:55 Co-signature as Attending Physician, Vaughn Taylor MD I reviewed the patient's care rn provided by the Advanced Practice Provider and agree with the diagnosis and treatment plan. Disposition Summary: 11/07/23 16:43 Discharge Ordered Notes: Location: Home pm1 Problem: new pm1 Symptoms: have improved pm1 Condition: Stable pm1 Diagnosis - Puncture wound without foreign body of foot pm1 Followup: pm1 - With: Emergency Department - When: As needed - Reason: Worsening of condition Followup: pm1 - With: Private Physician - When: 2 - 3 days - Reason: Recheck today's complaints, Continuance of care, Re-evaluation by your physician Discharge Instructions: - Discharge Summary Sheet pm1 - Puncture Wound pm1 Forms: - Medication Reconciliation Form pm1 - Antibiotic Education pm1 - Prescription Opioid Use pm1 - Patient Portal Instructions pm1 - Leadership Thank You Letter pm1 Prescriptions: - Cipro 500 mg Oral Tablet - take 1 tablet ORAL route every 12 hours for 10 days; 20 tablet; Refills: 0, pm1 Product Selection Permitted Signatures: Dispatcher [employer] EDVaughn Rodriguez MD MD rn Marinas, Patrick, NP BUILDING EQUIPMENT INSPECTOR pm1 Sandra Davis RN RN mb9 Armando Eden RN RN tl4
--- NOTE | 2023-11-07 16:43 | ER ---
Nurse's Notes [facility] Name: Eder Uriarte Age: 33 yrs Sex: Male : 1990 Arrival Date: 11/07/2023 Time: 15:34 Bed 13 Private MD: Diagnosis: Puncture wound without foreign body of foot Presentation: 11/06 15:57 Chief complaint: Patient states: Pt states he stepped on a shanti nail with right foot tl4 approx 30 min ago. No puncture wound noted. Unknown last tetanus. Coronavirus screen: At this time, the client does not indicate any symptoms associated with coronavirus-19. Ebola Screen: No symptoms or risks identified at this time. Initial Sepsis Screen: Does the patient meet any 2 criteria? No. Patient's initial sepsis screen is negative. Does the patient have a suspected source of infection? No. Patient's initial sepsis screen is negative. Risk Assessment: Do you want to hurt yourself or someone else? Patient reports no desire to harm self or others. Onset of symptoms was November 07, 2023 at 15:30. 15:57 Method Of Arrival: Ambulatory tl4 15:57 Acuity: SARTHAK 4 tl4 Triage Assessment: 16:02 General: Appears in no apparent distress. Behavior is calm, cooperative. Pain: tl4 Complains of pain in right foot. EENT: No signs and/or symptoms were reported regarding the EENT system. Neuro: Level of Consciousness is awake, alert, obeys commands, Oriented to person, place, time, situation, Moves all extremities. Full function Gait is steady, Speech is normal. Cardiovascular: Capillary refill < 3 seconds Patient's skin is warm and dry. Respiratory: Airway is patent Respiratory effort is even, unlabored, Respiratory pattern is regular, symmetrical, Breath sounds are clear bilaterally. GI: No signs and/or symptoms were reported involving the gastrointestinal system. : No signs and/or symptoms were reported regarding the genitourinary system. Derm: Wound noted right foot Wound is puncture type wound. Musculoskeletal: No signs and/or symptoms reported regarding the musculoskeletal system. Historical: - Allergies: 16:01 No Known Allergies; tl4 - Home Meds: 16:01 None [Active]; tl4 - PMHx: 16:01 Asthma; tl4 - PSHx: 16:01 Metal plate Right leg; tl4 Historical Immunization: - Administered Vaccines 16:54 Ciprofloxacin PO 500 mg mb9 16:34 Tetanus-Diphtheria Toxoid IM Adult 0.5 ml mb9 Catheter Finisher And Inspector: Fligoo; Exp: SunMay 15 2025; Lot #: [id number]; Series: 1 of 1; Patient Consent: Obtained; Date/Time: ; Source Name: Eder Uriarte; Source Relationship: Self; Address Information: [address] [facility] [address], [facility] [address]; ; Education: Provided; VIS Presented Date: ; VIS Publication: Tetanus/Diphtheria (Td) VIS 06/03/2013 (historic) - Immunization history:: Last tetanus immunization: unknown. - Infectious Disease History:: Denies. - Social history:: Smoking status: Patient denies any tobacco usage or history of. Patient/guardian denies using alcohol, street drugs. Screenin:36 [facility] ED Fall Risk Assessment (Adult) History of falling in the last 3 months, mb9 including since admission No falls in past 3 months (0 pts) Confusion or Disorientation No (0 pts) Intoxicated or Sedated No (0 pts) Impaired Gait No (0 pts) Mobility Assist Device Used No (0 pt) Altered Elimination No (0 pt) Score/Fall Risk Level 0 - 2 = Low Risk Oriented to surroundings, Maintained a safe environment, Educated pt \T\ family on fall prevention, incl call for assistance when getting out of bed. Abuse screen: Denies threats or abuse. Nutritional screening: No deficits noted. Tuberculosis screening: No symptoms or risk factors identified. Assessment: 16:35 General: Appears in no apparent distress. Behavior is calm, cooperative. Pain: mb9 Complains of pain in right foot. Neuro: Boateng Agitation-Sedation Scale (RASS): 0 - Alert and Calm Level of Consciousness is awake, alert, obeys commands, Oriented to person, place, time, situation, Appropriate for age. Cardiovascular: Patient's skin is warm and dry. Respiratory: Airway is patent Respiratory effort is even, unlabored, Respiratory pattern is regular, symmetrical. GI: No signs and/or symptoms were reported involving the gastrointestinal system. : No signs and/or symptoms were reported regarding the genitourinary system. EENT: No signs and/or symptoms were reported regarding the EENT system. Derm: Skin is pink, warm \T\ dry. Musculoskeletal: Range of motion: intact in all extremities. Vital Signs: 15:57 BP 148 / 93; Pulse 80; Resp 16; Temp 97.8(TE); Pulse Ox 97% on R/A; Weight 108.86 kg; tl4 Height 5 ft. 9 in. ; Pain 1/10; 15:57 Body Mass Index 35.44 (108.86 kg, 175.26 cm) tl4 15:57 Pain Scale: Adult tl4 ED Course: 15:38 Patient arrived in ED. mg5 15:55 Chevy Wilkins NP is PHCP. pm1 15:55 Vaughn Taylor MD is Attending Physician. pm1 16:01 Triage completed. tl4 16:04 Arm band placed on right wrist. tl4 16:27 Patient placed in an exam room, on a stretcher. ll1 16:29 XRAY Foot RIGHT 3 View In Process Unspecified. EDMS 16:30 Sandra Davis, TAMIKO is Primary Nurse. mb9 16:36 Bed in low position. Call light in reach. Side rails up X 1. Provided Education on: mb9 press call light if needing anything. Client placed on continuous cardiac and pulse oximetry monitoring. NIBP monitoring applied. 16:36 No provider procedures requiring assistance completed. Patient did not have IV access mb9 during this emergency room visit. 17:03 Wound care: to abrasion, located on right foot was cleaned with Betadine, soaked in mb9 normal saline solution, irrigated with normal saline. Administered Medications: 16:34 Drug: Tetanus-Diphtheria Toxoid IM Adult 0.5 ml IM once; Provide Vaccine Information mb9 Statement (VIS). {Catheter Finisher And Inspector: Fligoo; Exp: SunMay 15 2025; Lot #: [id number]; Series: 1 of 1; Patient Consent: Obtained; Date/Time: ; Source Name: Eder Uriarte; Source Relationship: Self; Address Information: [address] [place] [address], [facility] [address]; ; Education: Provided; VIS Presented Date: ; VIS Publication: Tetanus/Diphtheria (Td) VIS 06/03/2013 (historic)} Route: IM; Site: right deltoid; 16:46 Follow up: Response: No adverse reaction mb9 16:54 Drug: Ciprofloxacin PO 500 mg PO once Route: PO; mb9 17:04 Follow up: Response: No adverse reaction mb9 Outcome: 16:43 Discharge ordered by MD. pm1 17:03 Discharged to home ambulatory, mb9 17:03 Condition: stable 17:03 Discharge instructions given to patient, Instructed on discharge instructions, follow up and referral plans. Demonstrated understanding of instructions, follow-up care, medications, Prescriptions given X 1, 17:04 Patient left the ED. mb9 Signatures: Dispatcher [employer] EDMS Chevy Wilkins, ADAM GATEKEEPER pm1 Salvador Ni RN RN ll1 Sandra Davis RN RN mb9 Maria Fernanda Garces mg5 Armando Eden RN RN tl4
[2023-11-07] MEDS ORDERED: CIPROFLOXACIN HCL 500 MG TAB ONE (16:47)
[2023-11-07 21:01] VITALS: BP 148/93; TEMP 97.8; O2SAT 97
== END 2023-11-07 17:04 | disposition home or self-care (01) ==
LOC: ER 15:34
DX: S91.331A Puncture wound without foreign body, right foot, initial encounter (principal)
CPT/HCPCS: 90471; 99284

== ENCOUNTER 2024-08-30 18:05 | Emergency (ER) | payer SELFPAY ==
--- NOTE | 2024-08-30 18:48 | RAD REPORT ---
EXAMINATION: US Extrem Venous W Compress Parker CLINICAL INDICATION: [facility] MAIN PAIN Bed Name: IW3 Y TECHNIQUE: Complete bilateral duplex sonography of the BILATERAL lower extremity veins was performed. The examination included compression for vein patency, color Doppler imaging and flow augmentation in response to distal compression of the distal external iliac, common femoral, femoral, popliteal, t ibial, and great and small saphenous veins. COMPARISON: No prior exam. FINDINGS: Duplex sonography testing of the veins of the BILATERAL lower extremity was performed. Color flow julianna ging shows all veins to be compressible with [id number] color filling. Pulsatile and phasic flow is present within all lower extremity deep and superficial veins examined. IMPRESSION: There is no deep vein or superficial vein thrombosis.
--- NOTE | 2024-08-30 18:49 | RAD REPORT ---
EXAMINATION: US Lower Extremity Arterial Bilat CLINICAL INDICATION: Male, 33 years old. [facility] MAIN PAIN Bed Name: IW3 TECHNIQUE: Arterial duplex ultrasound of the bilateral lower extremities, with real-time, duplex, and spectral flow Doppler evaluation. COMPARISON: No prior exam. FINDINGS: Grayscale: Grayscale: No significant plaque. Right lower extremity: The common femoral through dorsalis pedis arteries are patent, with triphasic waveforms. Left lower extremity: The common femoral through dorsalis pedis arteries are patent, with triphasic waveforms. IMPRESSION: No significant peripheral vascular disease bilaterally.
[2024-08-30] MEDS ORDERED: IBUPROFEN 400 MG TAB ONE (18:51)
--- NOTE | 2024-08-30 19:24 | RAD REPORT ---
EXAMINATION: XR Tib Fib Right CLINICAL INDICATION: Male, 33 years old. PAIN TECHNIQUE: 2 view radiograph of the right tibia and fibula were obtained. COMPARISON: No prior exam. FINDINGS: No evidence of fracture or dislocation. Distal fibular fixation plate with transfixing scre w distally. Mild periscrew lucency along the fibula and tibia. No evidence of arthropathy or other focal bone lesion. Soft tissues are unremarkable. IMPRESSION: Mild periscrew lucency along the transfixing screw across the fibula and tibia. This is of uncertain clinical significance, but could represent an early sign of loosening.
--- NOTE | 2024-08-30 19:25 | RAD REPORT ---
EXAMINATION: XR Tib Fib Left CLINICAL INDICATION: Male, 33 years old. PAIN TECHNIQUE: 2 view radiograph of the left tibia and fibula were obtained. COMPARISON: No prior exam. FINDINGS: No evidence of fracture or dislocation. Normal alignment. No evidence of arthropathy or oth er focal bone lesion. Soft tissues are unremarkable. IMPRESSION: No acute or significant abnormalities.
--- NOTE | 2024-08-30 20:20 | EDPHYS ---
Physician Documentation [facility] Name: Eder Uriarte Age: 33 yrs Sex: Male : 1990 Arrival Date: 08/30/2024 Time: 18:05 Bed 11 Private MD: ED Physician Paul Savage HPI: 08/30 18:10 This 33 yrs old Male presents to ER via EMS with complaints of Leg Pain. cp 18:10 The patient presents with pain, that is acute. The complaints affect the right lower cp leg and left lower leg. Onset: The symptoms/episode began/occurred 2 week(s) ago. Modifying factors: the symptoms are aggravated by weight bearing, walking and standing. Associated signs and symptoms: Pertinent negatives fever, numbness, rash, warmth, weakness. 18:10 Treatment prior to arrival includes: no previous treatment. Severity of symptoms: in cp the emergency department the symptoms are unchanged. Historical: - Allergies: 18:09 No Known Allergies; iw - Home Meds: 18:09 None [Active]; iw - PMHx: 18:09 Asthma; iw - PSHx: 18:09 Metal plate Right leg; iw - Immunization history:: Adult Immunizations. - Infectious Disease History:: Denies. - Social history:: Smoking status: unknown. ROS: 18:15 MS/extremity: Positive for pain, tenderness, of the right lower leg and left lower leg, cp Negative for injury or acute deformity, 18:15 Respiratory: Negative for cough, shortness of breath, wheezing, cp 18:15 Eyes: Negative for injury, pain, redness, and discharge, cp 18:15 Constitutional: Negative for body aches, chills, fever, poor PO intake, 18:15 Neck: Negative for pain with movement, pain at rest, stiffness, 18:15 Cardiovascular: Negative for chest pain, edema, palpitations, 18:15 Abdomen/GI: Negative for abdominal pain, nausea, vomiting, and diarrhea, 18:15 Back: Negative for pain at rest, pain with movement, 18:15 Skin: Negative for cellulitis, rash, 18:15 All other systems are negative, Exam: 18:20 Constitutional: The patient appears in no acute distress, alert, awake, non-toxic, well cp developed, well nourished, obese, 18:20 Head/Face: Normocephalic, atraumatic. cp 18:20 Eyes: Periorbital structures: appear normal, Conjunctiva: normal, no exudate, no cp injection, Sclera: no appreciated abnormality, Lids and lashes: appear normal, bilaterally, 18:20 ENT: External ear(s): are unremarkable, Nose: is normal, Mouth: Lips: moist, Oral mucosa: moist, Posterior pharynx: Airway: no evidence of obstruction, patent, 18:20 Chest/axilla: Inspection: normal, 18:20 Cardiovascular: Rate: normal, Rhythm: regular, Edema: is not appreciated, 18:20 Respiratory: the patient does not display signs of respiratory distress, Respirations: normal, no use of accessory muscles, no retractions, Breath sounds: are clear throughout, no decreased breath sounds, no stridor, no wheezing, 18:20 Abdomen/GI: Inspection: abdomen appears normal, Palpation: abdomen is soft and non-tender, in all quadrants, 18:20 Back: pain, is absent, ROM is normal, 18:20 Musculoskeletal/extremity: Extremities: grossly normal except: noted in the right lower leg and left lower leg: pain, tenderness, There is no evidence of deformity, erythema, swelling, Pulses: noted to be 2+ in the right dorsalis pedis artery and left dorsalis pedis artery, 18:20 Skin: cellulitis, is not appreciated, no rash present. Vital Signs: 18:10 Resp 18; Weight 108.86 kg; Height 5 ft. 9 in. ; Pain 5/10; iw 18:58 BP 137 / 91; Pulse 68; Resp 18; Temp 98.3; Pulse Ox 97% ; Pain 3/10; cm10 20:41 BP 120 / 84; Pulse 73; Resp 18 S; Pulse Ox 98% on R/A; Pain 2/10; br2 18:10 Body Mass Index 35.44 (108.86 kg, 175.26 cm) iw 18:10 Pain Scale: Adult iw 18:58 Pain Scale: Adult cm10 20:41 Pain Scale: Adult br2 MDM: 18:10 Medical Screening Exam initiated cp 20:20 Data reviewed: vital signs, nurses notes, radiologic studies, plain films, ultrasound, cp and as a result, I will discharge patient. 20:20 Differential diagnosis: closed fracture, contusion, diaz splits, edema, dvt. I cp considered the following discharge prescriptions or medication management in the emergency department Medications were administered in the Emergency Department. See MAR. Counseling: I had a detailed discussion with the patient and/or guardian regarding the historical points, exam findings, and any diagnostic results supporting the discharge/admit diagnosis, radiology results, to return to the emergency department if symptoms worsen or persist or if there are any questions or concerns that arise at home. Response to treatment: the patient's symptoms have mildly improved after treatment, and as a result, I will discharge patient. 08/30 18:10 Order name: US Extremity Venous W Compression Parker cp 08/30 18:10 Order name: Lower Extremity Arterial Bilat US cp 08/30 18:10 Order name: XRAY Tib Fib RIGHT cp 08/30 18:10 Order name: XRAY Tib Fib LEFT cp Administered Medications: 18:58 Drug: Ibuprofen PO 800 mg PO once Route: PO; cm10 19:30 Follow up: Response: No adverse reaction br2 Disposition Summary: 08/30/24 20:20 Discharge Ordered Notes: Location: Home cp Problem: new cp Symptoms: have improved cp Condition: Stable cp Diagnosis - Pain in right lower leg cp - Pain in left lower leg cp Followup: cp - With: Private Physician - When: 2 - 3 days - Reason: Worsening of condition Discharge Instructions: - Discharge Summary Sheet cp - Elastic Bandage and RICE Therapy cp - Musculoskeletal Pain cp - Diaz Splints cp - How to Use Cold Therapy cp Forms: - Medication Reconciliation Form cp - Antibiotic Education cp - Prescription Opioid Use cp - Patient Portal Instructions cp - Leadership Thank You Letter cp Prescriptions: - Anaprox DS 550 mg Oral Tablet - take 1 tablet ORAL route every 12 hours As needed; 20 tablet; Refills: 0, cp Product Selection Permitted Addendum: 08/31/2024 22:21 Co-signature as Attending Physician, Paul Savage MD I agree with the assessment and c betts plan of care. Signatures: Dispatcher [employer] Paul Braxton MD MD cha Williams, Irene RN Paul Esquivel PA PA cp Martinez, Clarissa, RN RN cm10 Nancy Cummins RN br2 Corrections: (The following items were deleted from the chart) 08/30 18:11 18:11 Tib Fib Right+RAD.RAD.BRZ ordered. ALISONHI ROD 18:11 18:11 Tib Fib Left+RAD.RAD.BRZ ordered. EDMS EDMS :08/29 18:15 MS/extremity: Positive for pain, tenderness, of the right lower leg and cp left lower leg, Negative for injury or acute deformity, cp 08/31 19:08/29 18:15 Respiratory: Negative for cough, shortness of breath, wheezing, cp cp
--- NOTE | 2024-08-30 20:20 | ER ---
Nurse's Notes [facility] Name: Eder Uriarte Age: 33 yrs Sex: Male : 1990 Arrival Date: 08/30/2024 Time: 18:05 Bed 11 Private MD: Diagnosis: Pain in right lower leg;Pain in left lower leg Presentation: 08/30 18:08 Chief complaint: EMS states: right leg/swenson pain X 2 weeks, he does a lot of walking to and from work. Coronavirus screen: At this time, the client does not indicate any symptoms associated with coronavirus-19. Ebola Screen: No symptoms or risks identified at this time. Initial Sepsis Screen: Does the patient meet any 2 criteria? No. Patient's initial sepsis screen is negative. Does the patient have a suspected source of infection? No. Patient's initial sepsis screen is negative. Risk Assessment: Do you want to hurt yourself or someone else? Patient reports no desire to harm self or others. Onset of symptoms was August 17, 2024. 18:08 Method Of Arrival: EMS: [facility] iw 18:08 Acuity: SARTHAK 4 iw Historical: - Allergies: 18:09 No Known Allergies; iw - Home Meds: 18:09 None [Active]; iw - PMHx: 18:09 Asthma; iw - PSHx: 18:09 Metal plate Right leg; iw - Immunization history:: Adult Immunizations. - Infectious Disease History:: Denies. - Social history:: Smoking status: unknown. Screenin:41 [facility] ED Fall Risk Assessment (Adult) History of falling in the last 3 months, br2 including since admission No falls in past 3 months (0 pts) Confusion or Disorientation No (0 pts) Intoxicated or Sedated No (0 pts) Impaired Gait No (0 pts) Mobility Assist Device Used No (0 pt) Altered Elimination No (0 pt) Score/Fall Risk Level 0 - 2 = Low Risk Oriented to surroundings. Abuse screen: Denies threats or abuse. Denies injuries from another. Nutritional screening: No deficits noted. Tuberculosis screening: Assessment: 19:42 Reassessment: Patient and/or family updated on plan of care and expected duration. Pain br2 level reassessed. Patient is alert, oriented x 3, equal unlabored respirations, skin warm/dry/pink. General: Appears uncomfortable, Behavior is calm, cooperative. Pain: Complains of pain in right swenson. 20:41 Reassessment: Patient and/or family updated on plan of care and expected duration. Pain br2 level reassessed. Patient is alert, oriented x 3, equal unlabored respirations, skin warm/dry/pink. Patient states feeling better. Patient states symptoms have improved. Vital Signs: 18:10 Resp 18; Weight 108.86 kg; Height 5 ft. 9 in. ; Pain 5/10; iw 18:58 BP 137 / 91; Pulse 68; Resp 18; Temp 98.3; Pulse Ox 97% ; Pain 3/10; cm10 20:41 BP 120 / 84; Pulse 73; Resp 18 S; Pulse Ox 98% on R/A; Pain 2/10; br2 18:10 Body Mass Index 35.44 (108.86 kg, 175.26 cm) iw 18:10 Pain Scale: Adult iw 18:58 Pain Scale: Adult cm10 20:41 Pain Scale: Adult br2 ED Course: 18:08 Patient arrived in ED. iw 18:08 Paul Sher PA is PHCP. cp 18:09 Paul Savage MD is Attending Physician. cp 18:09 Triage completed. iw 18:37 US Extremity Venous W Compression Parker In Process Unspecified. EDMS 18:37 Lower Extremity Arterial Bilat US In Process Unspecified. EDMS 18:46 XRAY Tib Fib RIGHT In Process Unspecified. EDMS 18:46 XRAY Tib Fib LEFT In Process Unspecified. EDMS 19:41 Nancy Cummins, RN is Primary Nurse. br2 20:41 Patient has correct armband on for positive identification. br2 20:41 No provider procedures requiring assistance completed. Patient did not have IV access br2 during this emergency room visit. Administered Medications: 18:58 Drug: Ibuprofen PO 800 mg PO once Route: PO; cm10 19:30 Follow up: Response: No adverse reaction br2 Medication: 20:41 VIS not applicable for this client. br2 Outcome: 20:20 Discharge ordered by . cp 20:41 Discharged to home via wheelchair, br2 20:41 Condition: good 20:41 Discharge instructions given to patient, Instructed on discharge instructions, follow up and referral plans. Demonstrated understanding of instructions, follow-up care, medications, Prescriptions given X 1, 20:43 Patient left the ED. br2 Signatures: Dispatcher [employer] EDMS Nieves Cuevas, RN RN iw Paul Sher PA PA cp Martinez, Clarissa RN RN cm10 Nancy Cummins RN RN br2
[2024-08-30 21:25] VITALS: TEMP 98.3
[2024-08-30 21:27] VITALS: BP 120/84; O2SAT 98
== END 2024-08-30 20:43 | disposition home or self-care (01) ==
LOC: ER 18:05
DX: M79.662 Pain in left lower leg (principal); M79.661 Pain in right lower leg
CPT/HCPCS: 93925; 93970; 99284

== ENCOUNTER 2024-12-04 21:46 | Emergency (ER) | payer SELFPAY ==
[2024-12-04] MEDS ORDERED: FLUORESCEIN SODIUM 1 MG/WRAP ONE (21:54)
[2024-12-04] MEDS ORDERED: TETRACAINE HCL 0.5% 4ML OPTH ONE (21:54)
--- NOTE | 2024-12-04 22:03 | EDPHYS ---
Physician Documentation [facility] Name: Eder Uriarte Age: 34 yrs Sex: Male : 1990 Arrival Date: 12/04/2024 Time: 21:45 Bed 8 Private MD: ED Physician Roosevelt Valencia HPI: 12/04 21:59 This 34 yrs old Male presents to ER via EMS with unknown complaint. cr8 21:59 Patient is a 34-year-old male who comes to the emergency room complaining of right eye cr8 pain that began this afternoon. Denies any injury or trauma. States he wears contacts. No change in vision. Has been afebrile.. Historical: - Allergies: 21:50 No Known Allergies; lg3 - Home Meds: 21:50 None [Active]; lg3 - PMHx: 21:50 Asthma; chrons (Asthma); lg3 - PSHx: 21:50 Metal plate Right leg; lg3 - Immunization history:: Adult Immunizations up to date. - Infectious Disease History:: Denies. - Social history:: Smoking status: Patient denies any tobacco usage or history of. ROS: 21:59 Constitutional: as per HPI cr8 Exam: 21:59 Constitutional: This is a well developed, well nourished patient who is awake, alert, cr8 and in no acute distress. 21:59 Eyes: Periorbital structures: appear normal, Pupils: equal, round, and reactive to light and accomodation, Extraocular movements: no acute changes, Conjunctiva: injected, in the right eye, tearing noted, in right eye, Sclera: no acute changes, Vital Signs: 21:48 BP 132 / 74; Pulse 70; Resp 16 S; Temp 98.1(O); Pulse Ox 99% on R/A; Weight 113.4 kg lg3 (R); Height 5 ft. 9 in. (R); Pain 3/10; 22:26 BP 139 / 77; Pulse 76; Resp 17 S; Pulse Ox 99% on R/A; lg3 21:48 Body Mass Index 36.92 (113.40 kg, 175.26 cm) lg3 21:48 Pain Scale: Adult lg3 Procedures: 21:59 Eye Exam: Tetracaine used to numb the right eye. And then it was stained with cr8 fluorescein drops. Examined under the Pickett lamp. No evidence of corneal abrasion corneal ulcer. Irina sign negative. MDM: 21:49 Medical Screening Exam initiated cr8 21:59 Data reviewed: vital signs, nurses notes. cr8 22:11 ED course: Patient presents with Scleral injection. No recent eye trauma or suspected cr8 microtrauma (dust, sand, etc). Negative Irina sign, no sign of corneal abrasion/ulcer. Given history and exam I have low suspicion for globe rupture, uveitis, HSV keratitis, Endopthalmitist, Foreign Body. When I am prescribed antibiotics since he has contacts and could be early infection. Advised him not to wear his contacts until it is cleared. Tylenol ibuprofen for pain.. Administered Medications: 21:57 Drug: Tetracaine Ophthalmic Drops 0.5 % 1 drops Ophthalmic once Route: Ophthalmic; lg3 Site: right eye; 22:26 Follow up: Response: No adverse reaction lg3 21:57 Drug: Fluorescein Ophthalmic Strip 1 strip Ophthalmic once Route: Ophthalmic; Site: lg3 right eye; 22:26 Follow up: Response: No adverse reaction lg3 21:57 Not Given (med not avaliablee): erythromycinointment 1 application Ophthalmic once lg3 Disposition: 12/05 00:51 Co-signature as Attending Physician, Rooseevlt Valencia MD I agree with the assessment sp4 and plan of care. I reviewed the patient's care provided by the Advanced Practice Provider and agree with the diagnosis and treatment plan. Disposition Summary: 12/04/24 22:03 Discharge Ordered Notes: Location: Home cr8 Condition: Stable cr8 Diagnosis - Unspecified acute conjunctivitis, right eye cr8 Followup: cr8 - With: Bertrand Horne MD - When: 1 - 2 days - Reason: Recheck today's complaints, Continuance of care, Re-evaluation by your physician Followup: cr8 - With: Emergency Department - When: As needed - Reason: Worsening of condition Discharge Instructions: - Discharge Summary Sheet cr8 - Bacterial Conjunctivitis, Adult cr8 - How to Use Eye Drops and Eye Ointments cr8 Forms: - Medication Reconciliation Form cr8 - Patient Portal Instructions cr8 - Leadership Thank You Letter cr8 Prescriptions: - Erythromycin 5 mg/gram (0.5 %) Ophthalmic ointment - apply 1 centimeter OPHTHALMIC route 4 times per day for 7 days; 1 Applicator; cr8 Refills: 0, Product Selection Permitted Signatures: Lily Nichols, RN RN lg3 Roosevelt Valencia MD MD sp4 Eder Cummins, DISTRICT SALES MANAGER DISTRICT SALES MANAGER cr8
--- NOTE | 2024-12-04 22:03 | ER ---
Nurse's Notes [facility] Name: Eder Uriarte Age: 34 yrs Sex: Male : 1990 Arrival Date: 12/04/2024 Time: 21:45 Bed 8 Private MD: Diagnosis: Unspecified acute conjunctivitis, right eye Presentation: 12/04 21:48 Chief complaint: Patient states: right eye pain. Coronavirus screen: Client denies lg3 travel out of the [place] in the last 14 days. At this time, the client does not indicate any symptoms associated with coronavirus-19. Ebola Screen: No symptoms or risks identified at this time. Initial Sepsis Screen: Does the patient meet any 2 criteria? No. Patient's initial sepsis screen is negative. Does the patient have a suspected source of infection? No. Patient's initial sepsis screen is negative. Risk Assessment: Do you want to hurt yourself or someone else? Patient reports no desire to harm self or others. Onset of symptoms is unknown. 21:48 Method Of Arrival: EMS: [facility] 3 21:48 Acuity: SARTHAK 4 lg3 Triage Assessment: 21:50 General: Appears in no apparent distress. comfortable, Behavior is calm, cooperative. lg3 Pain: Complains of pain in right eye. EENT: Sclera/Cornea are reddened in right eye Reports pain in right eye. Neuro: No deficits noted. Boateng Agitation-Sedation Scale (RASS): 0 - Alert and Calm Level of Consciousness is awake, alert, obeys commands, Oriented to person, place, time, situation. Cardiovascular: No deficits noted. Denies chest pain, shortness of breath, Capillary refill < 3 seconds Clubbing of nail beds is absent JVD is absent Patient's skin is warm and dry. Respiratory: No deficits noted. Airway is patent Respiratory effort is even, unlabored, Respiratory pattern is regular, symmetrical. GI: No deficits noted. No signs and/or symptoms were reported involving the gastrointestinal system. : No deficits noted. No signs and/or symptoms were reported regarding the genitourinary system. Derm: No deficits noted. No signs and/or symptoms reported regarding the dermatologic system. Skin is intact, is healthy with good turgor, Skin is dry, Skin is normal, Skin temperature is warm. Musculoskeletal: No deficits noted. No signs and/or symptoms reported regarding the musculoskeletal system. Circulation, motion, and sensation intact. Range of motion: intact in all extremities. Historical: - Allergies: 21:50 No Known Allergies; lg3 - Home Meds: 21:50 None [Active]; lg3 - PMHx: 21:50 Asthma; chrons (Asthma); lg3 - PSHx: 21:50 Metal plate Right leg; lg3 - Immunization history:: Adult Immunizations up to date. - Infectious Disease History:: Denies. - Social history:: Smoking status: Patient denies any tobacco usage or history of. Screenin:51 [facility] ED Fall Risk Assessment (Adult) History of falling in the last 3 months, lg3 including since admission No falls in past 3 months (0 pts) Confusion or Disorientation No (0 pts) Intoxicated or Sedated No (0 pts) Impaired Gait No (0 pts) Mobility Assist Device Used No (0 pt) Altered Elimination No (0 pt) Score/Fall Risk Level 0 - 2 = Low Risk Oriented to surroundings, Maintained a safe environment, Educated pt \T\ family on fall prevention, incl call for assistance when getting out of bed, Assessed \T\ reinforced patient's understanding of fall precautions. Abuse screen: Denies threats or abuse. Denies injuries from another. Nutritional screening: No deficits noted. Tuberculosis screening: No symptoms or risk factors identified. Assessment: 21:51 General: see triage assessment. lg3 22:26 Reassessment: Patient appears in no apparent distress at this time. No changes from lg3 previously documented assessment. Patient and/or family updated on plan of care and expected duration. Pain level reassessed. Patient is alert, oriented x 3, equal unlabored respirations, skin warm/dry/pink. Vital Signs: 21:48 BP 132 / 74; Pulse 70; Resp 16 S; Temp 98.1(O); Pulse Ox 99% on R/A; Weight 113.4 kg lg3 (R); Height 5 ft. 9 in. (R); Pain 3/10; 22:26 BP 139 / 77; Pulse 76; Resp 17 S; Pulse Ox 99% on R/A; lg3 21:48 Body Mass Index 36.92 (113.40 kg, 175.26 cm) lg3 21:48 Pain Scale: Adult lg3 ED Course: 21:45 Patient arrived in ED. rv1 21:46 [facility] cr8 21:46 Roosevelt Valencia MD is Attending Physician. cr8 21:48 Lily Nichols RN is Primary Nurse. lg3 21:50 Triage completed. lg3 21:50 Arm band placed on right wrist. lg3 21:51 Patient has correct armband on for positive identification. Bed in low position. Call lg3 light in reach. Side rails up X 1. Client placed on continuous cardiac and pulse oximetry monitoring. NIBP monitoring applied. Door closed. Noise minimized. Warm blanket given. Pillow given. 22:02 Bertrand Horne MD is Referral Physician. cr8 22:26 Assist provider with eye exam of right eye. using fluorescein stain, Performed by lg3 Eder Cummins CLIN[facility] LPN Patient tolerated well. 22:27 Patient did not have IV access during this emergency room visit. lg3 Administered Medications: 21:57 Drug: Tetracaine Ophthalmic Drops 0.5 % 1 drops Ophthalmic once Route: Ophthalmic; lg3 Site: right eye; 22:26 Follow up: Response: No adverse reaction lg3 21:57 Drug: Fluorescein Ophthalmic Strip 1 strip Ophthalmic once Route: Ophthalmic; Site: lg3 right eye; 22:26 Follow up: Response: No adverse reaction lg3 21:57 Not Given (med not avaliablee): erythromycinointment 1 application Ophthalmic once lg3 Medication: 21:51 VIS not applicable for this client. lg3 Outcome: 22:03 Discharge ordered by . cr8 22:27 Discharged to home ambulatory, lg3 22:27 Condition: stable 22:27 Condition: stable 22:27 Discharge instructions given to patient, Instructed on discharge instructions, follow up and referral plans. medication usage, Demonstrated understanding of instructions, follow-up care, medications, Prescriptions given X 1, 22:27 Patient left the ED. lg3 Signatures: Lily Nichols RN RN 3 Mgean Estrada rv1 Eder Cummins NP CLINIC LPN cr8
[2024-12-04 22:55] VITALS: TEMP 98.1; O2SAT 99
[2024-12-04 22:57] VITALS: BP 139/77
== END 2024-12-04 22:27 | disposition home or self-care (01) ==
LOC: ER 21:46
DX: H10.31 Unspecified acute conjunctivitis, right eye (principal)
CPT/HCPCS: 99284

== ENCOUNTER 2024-12-05 04:51 | Emergency (ER) | payer SELFPAY ==
[2024-12-05] MEDS ORDERED: TETRACAINE HCL 0.5% 4ML OPTH ONE (05:25)
[2024-12-05] MEDS ORDERED: FLUORESCEIN SODIUM 1 MG/WRAP ONE (05:25)
[2024-12-05] MEDS ORDERED: GENTAMICIN 0.3% OPTH DROP 5ML ONE (05:30)
[2024-12-05] MEDS ORDERED: MOXIFLOXACIN HCL 0.5% 3ML OPTH ONE (05:55)
[2024-12-05 06:11] LABS: Absolute Lymphocytes (CBC) 1.6 K/uL (0.7-4.9); Hematocrit 44.4 % (39.6-49.0); Hemoglobin 14.9 g/dL (13.6-17.9); MCH 29.1 pg (27.0-35.0); MCHC 33.6 g/dL (32.0-36.0); MCV 86.8 fL (80-100); MPV 6.9 fL (7.6-11.3); Nucleated RBC Absolute Count 0.0 (0-0); Nucleated Red Blood Cells % 0.1 % (0-0); RBC Red Blood Cell Count 5.11 M/uL (4.33-5.43); White Blood Count 6.20 thou/uL (4.3-10.9)
--- NOTE | 2024-12-05 06:16 | ER ---
Nurse's Notes [facility] Name: Eder Uriarte Age: 34 yrs Sex: Male : 1990 Arrival Date: 12/05/2024 Time: 04:51 Bed 12 Private MD: Diagnosis: Right corneal ulcer, suspected right eye Pseudomonas conjunctivitis, moderate right corneal abrasion Presentation: 12/05 05:18 Chief complaint: EMS states: says he was here earlier for the same thing but the pain vc1 is getting worse. Coronavirus screen: Client denies travel out of the [place] in the last 14 days. At this time, the client does not indicate any symptoms associated with coronavirus-19. Ebola Screen: Patient negative for fever greater than or equal to 101.5 degrees Fahrenheit, and additional compatible Ebola Virus Disease symptoms Patient denies exposure to infectious person. Patient denies travel to an Ebola-affected area in the 21 days before illness onset. No symptoms or risks identified at this time. Mechanism of Injury: No Mechanism of Injury. The patient denies any loss of vision. Initial Sepsis Screen: Does the patient meet any 2 criteria? No. Patient's initial sepsis screen is negative. Does the patient have a suspected source of infection? No. Patient's initial sepsis screen is negative. Risk Assessment: Do you want to hurt yourself or someone else? Patient reports no desire to harm self or others. Onset of symptoms is unknown. 05:18 Method Of Arrival: EMS: [facility] vc1 05:18 Acuity: SARTHAK 4 vc1 Triage Assessment: 05:21 General: Appears in no apparent distress. uncomfortable, obese, Behavior is vc1 cooperative, flat. Pain: Complains of pain in right eye Pain currently is 7 out of 10 on a pain scale. Quality of pain is described as squeezing. EENT: Eyes are tearing on right eye Lid(s) inflamed. Neuro: Level of Consciousness is awake, alert, obeys commands, Oriented to person, place, time, situation, Appropriate for age. Cardiovascular: Capillary refill < 3 seconds Patient's skin is warm and dry. Respiratory: Airway is patent Respiratory effort is even, unlabored, Respiratory pattern is regular, symmetrical. GI: No deficits noted. No signs and/or symptoms were reported involving the gastrointestinal system. : No deficits noted. No signs and/or symptoms were reported regarding the genitourinary system. Derm: Skin is intact, is healthy with good turgor, Skin is dry, Skin is normal, Skin temperature is warm. Musculoskeletal: Circulation, motion, and sensation intact. Range of motion: intact in all extremities, Swelling present in right upper eyelid and right lower eyelid. Historical: - Allergies: 05:20 No Known Allergies; vc1 - Home Meds: 05:20 None [Active]; vc1 - PMHx: 05:20 Asthma; CHRONS; vc1 - PSHx: 05:20 Metal plate Right leg; vc1 - Immunization history:: Client reports receiving the 2nd dose of the Covid vaccine. - Infectious Disease History:: Denies. - Social history:: Smoking status: Patient denies any tobacco usage or history of. - Family history:: not pertinent. Screenin:20 [facility] ED Fall Risk Assessment (Adult) History of falling in the last 3 months, vc1 including since admission No falls in past 3 months (0 pts) Confusion or Disorientation No (0 pts) Intoxicated or Sedated No (0 pts) Impaired Gait No (0 pts) Mobility Assist Device Used No (0 pt) Altered Elimination No (0 pt) Score/Fall Risk Level 0 - 2 = Low Risk Oriented to surroundings, Maintained a safe environment, Educated pt \T\ family on fall prevention, incl call for assistance when getting out of bed, Assessed \T\ reinforced patient's understanding of fall precautions, Hourly rounding (assess needs \T\ fall precautionary measures) done. Abuse screen: Denies threats or abuse. Nutritional screening: No deficits noted. Tuberculosis screening: No symptoms or risk factors identified. Assessment: 05:23 EENT: Sclera/Cornea are reddened in right eye. vc1 06:39 General: See triage assessment. vc1 Vital Signs: 05:18 BP 146 / 91; Pulse 77; Resp 16; Temp 97.7; Pulse Ox 96% ; Weight 113.4 kg; Height 5 ft. vc1 9 in. ; Pain 7/10; 05:18 Body Mass Index 36.92 (113.40 kg, 175.26 cm) vc1 05:18 Pain Scale: Adult vc1 Jose Coma Score: 06:08 Eye Response: spontaneous(4). Motor Response: obeys commands(6). Verbal Response: sp4 oriented(5). Total: 15. ED Course: 05:12 Patient arrived in ED. vc1 05:14 Roosevelt Valencia MD is Attending Physician. sp4 05:20 Triage completed. vc1 05:20 Arm band placed on left wrist. vc1 05:21 Patient has correct armband on for positive identification. Provided Education on: Plan vc1 of care. 05:31 Carolyn Stevenson, RN is Primary Nurse. vc1 06:06 Initial lab(s) drawn, by ky, sent to lab. Inserted saline lock: 20 gauge in right cp4 antecubital area, using aseptic technique. Blood collected. Flushed with 10 mL NS. 07:10 No provider procedures requiring assistance completed. Patient transferred, IV remains vc1 in place. Administered Medications: 05:32 Not Given (Other Intervention Used): tobramycindrops (0.3 %) 2 drops Ophthalmic once vc1 06:14 Drug: Vigamox Ophthalmic Drops 0.5 % 2 drops Ophthalmic once Route: Ophthalmic; Site: vc1 right eye; 06:15 Drug: Gentamicin Ophthalmic Drops 0.3 % 2 drops Ophthalmic once Route: Ophthalmic; vc1 Site: right eye; 06:24 Drug: NS 0.9% IV 1000 ml IV at 125 ml/hr once; to be given as a bolus over 60 minutes [facility] Route: IV; Rate: 125 ml/hr; Site: right antecubital; 06:24 Drug: Ondansetron IVP 4 mg IVP once; over 2 minutes Route: IVP; Site: right antecubital;4 06:25 Drug: Tetracaine Ophthalmic Drops 0.5 % 1 drops Ophthalmic once {Note: Administered by cp4 provider.} Route: Ophthalmic; Site: both eyes; 06:25 Drug: Ketorolac IVP 30 mg IVP once Route: IVP; Site: right antecubital; 4 06:25 Drug: levofloxacin IVPB 750 mg 150 ml IVPB once over 90 mins Volume: 150 ml; Route: cp4 IVPB; Infused Over: 90 mins; Site: right antecubital; Medication: 05:21 VIS not applicable for this client. vc1 Outcome: 06:16 ER care complete, transfer ordered by . sp4 07:10 Transferred by ground EMS to [facility], Transfer form vc1 completed. X-rays sent w/ patient. 07:10 Condition: stable 07:10 Instructed on the need for transfer, 07:11 Patient left the ED. vc1 Signatures: Carolyn Stevenson RN RN vc1 Roosevelt Valencia MD MD sp4 Aisha Green cp4
--- NOTE | 2024-12-05 06:16 | EDPHYS ---
Physician Documentation [facility] Name: Eder Uriarte Age: 34 yrs Sex: Male : 1990 Arrival Date: 12/05/2024 Time: 04:51 Bed 12 Private MD: ED Physician Roosevelt Valencia HPI: 12/05 05:14 This 34 yrs old Male presents to ER via Unassigned with complaints of eye sp4 pain right . 06:08 Patient presents with EMS for moderate to severe and worsening right eye pain. Patient sp4 was here yesterday evening earlier and was prescribed erythromycin ointment for right eye conjunctivitis. Yesterday evening pain was moderate the pain has intensified overnight. Patient reports she is wearing reusable contact lens. . Historical: - Allergies: 05:20 No Known Allergies; vc1 - Home Meds: 05:20 None [Active]; vc1 - PMHx: 05:20 Asthma; CHRONS; vc1 - PSHx: 05:20 Metal plate Right leg; vc1 - Immunization history:: Client reports receiving the 2nd dose of the Covid vaccine. - Infectious Disease History:: Denies. - Social history:: Smoking status: Patient denies any tobacco usage or history of. - Family history:: not pertinent. ROS: 06:08 Constitutional: Negative for fever, chills, and weight loss, positive right eye pain sp4 redness and tearing 06:08 All other systems are negative, Exam: 06:08 Constitutional: This is a well developed, well nourished patient who is awake, alert, sp4 in moderate distress secondary to pain Head/Face: Normocephalic, atraumatic. Eyes: Pupils equal round and reactive to light, extra-ocular motions intact. Lids and lashes normal. Conjunctiva and sclera are not injected. Periorbital areas with no swelling, redness, or edema. Left eye examination reveals significant conjunctival erythema and clear eye discharge. Right eye examination reveals moderate size corneal ulceration roughly to the center over the cornea, also moderate size corneal abrasion just superior to the pupil. Moderate conjunctival erythema and clear to purulent eye discharge. Pupils equal and reactive. ENT: Nares patent. No nasal discharge, no septal abnormalities noted. Tympanic membranes are normal and external auditory canals are clear. Oropharynx with no redness, swelling, or masses, exudates, or evidence of obstruction, uvula midline. Mucous membranes moist. Neck: Trachea midline, no thyromegaly or masses palpated, and no cervical lymphadenopathy. Supple, full range of motion without nuchal rigidity, or vertebral point tenderness. Chest/axilla: Normal chest wall appearance and motion. Nontender with no deformity. No lesions are appreciated. Cardiovascular: Regular rate and rhythm with a normal S1 and S2. No gallops, murmurs, or rubs. No pulse deficits. Respiratory: Lungs have equal breath sounds bilaterally, clear to auscultation and percussion. No rales, rhonchi or wheezes noted. No increased work of breathing, no retractions or nasal flaring. Abdomen/GI: Soft, with normal bowel sounds. No distension or tympany. No guarding or rebound. No evidence of tenderness throughout. Back: No spinal tenderness. No costovertebral tenderness. Skin: Warm, dry with normal turgor. Normal color with no rashes, no lesions, and no evidence of cellulitis. MS/ Extremity: Pulses equal, no cyanosis. Neurovascular intact. Full, normal range of motion. Neuro: Awake and alert, GCS 15, oriented to person, place, time, and situation. Cranial nerves II-XII grossly intact. Motor strength 5/5 in all extremities. Sensory grossly intact. Psych: Awake, alert, with orientation to person, place and time. Behavior, mood, and affect are within normal limits Vital Signs: 05:18 BP 146 / 91; Pulse 77; Resp 16; Temp 97.7; Pulse Ox 96% ; Weight 113.4 kg; Height 5 ft. vc1 9 in. ; Pain 7/10; 05:18 Body Mass Index 36.92 (113.40 kg, 175.26 cm) vc1 05:18 Pain Scale: Adult vc1 Monroe Coma Score: 06:08 Eye Response: spontaneous(4). Motor Response: obeys commands(6). Verbal Response: sp4 oriented(5). Total: 15. MDM: 05:15 Medical Screening Exam initiated sp4 06:11 Differential diagnosis: Corneal abrasion of Corneal ulcer of Foreign body in Acute sp4 iritis of Acute glaucoma in Data reviewed: vital signs, nurses notes, EMS record, old medical records, lab test result(s). ED course: Patient has moderate size mid corneal oral ulcer on the right , this is associated with contact lens wearing. We suspect Pseudomonas aeruginosa with corneal ulceration. Patient was discussed with civil engineering professor at [facility] and accepted as [place] transfer for eye examination.. 19:22 Consideration of Admission/Observation Escalation of care including sp4 admission/observation considered. Management of patient was discussed with the following: Full Stack Php Developer: Credit Assessment Analyst at [facility] . ED course: Patient transferred to [facility] , patient expressed desire to go to [facility] rather than [facility]. . 12/05 05:44 Order name: CBC with Diff; Complete Time: 06:16 sp4 12/05 05:44 Order name: CMP sp4 12/05 05:44 Order name: PT-INR; Complete Time: 06:34 sp4 12/05 05:15 Order name: Eye Tray; Complete Time: 05:32 sp4 12/05 05:15 Order name: Fluoresene Opth strip; Complete Time: 05:32 sp4 12/05 05:44 Order name: IV Saline Lock; Complete Time: 06:05 sp4 12/05 05:44 Order name: Labs collected and sent; Complete Time: 06:05 sp4 12/05 05:45 Order name: NPO; Complete Time: 06:14 sp4 Administered Medications: 05:32 Not Given (Other Intervention Used): tobramycindrops (0.3 %) 2 drops Ophthalmic once vc1 06:14 Drug: Vigamox Ophthalmic Drops 0.5 % 2 drops Ophthalmic once Route: Ophthalmic; Site: vc1 right eye; 06:15 Drug: Gentamicin Ophthalmic Drops 0.3 % 2 drops Ophthalmic once Route: Ophthalmic; vc1 Site: right eye; 06:24 Drug: NS 0.9% IV 1000 ml IV at 125 ml/hr once; to be given as a bolus over 60 minutes cp4 Route: IV; Rate: 125 ml/hr; Site: right antecubital; 06:24 Drug: Ondansetron IVP 4 mg IVP once; over 2 minutes Route: IVP; Site: right antecubital;cp4 06:25 Drug: Tetracaine Ophthalmic Drops 0.5 % 1 drops Ophthalmic once {Note: Administered by cp4 provider.} Route: Ophthalmic; Site: both eyes; 06:25 Drug: Ketorolac IVP 30 mg IVP once Route: IVP; Site: right antecubital; cp4 06:25 Drug: levofloxacin IVPB 750 mg 150 ml IVPB once over 90 mins Volume: 150 ml; Route: cp4 IVPB; Infused Over: 90 mins; Site: right antecubital; Disposition: 19:27 Chart complete. sp4 Disposition Summary: 12/05/24 06:16 Transfer Ordered Notes: Transfer Location: [facility] sp4 Reason: Higher level of care sp4 Condition: Stable sp4 Problem: new sp4 Symptoms: have improved sp4 Accepting Physician: Dr. Morgan with ophthalmology(12/05/24 07:11) vc1 Diagnosis - Right corneal ulcer, suspected right eye Pseudomonas conjunctivitis, moderate right sp4 corneal abrasion Forms: - Medication Reconciliation Form sp4 - SBAR form sp4 Signatures: Dispatcher [employer] Carolyn uY RN RN vc1 Roosevelt Valencia MD MD sp4 Aisha Green cp4 Corrections: (The following items were deleted from the chart) 07:11 06:16 Dr. Morgan with ophthalmology sp4 vc1
[2024-12-05] MEDS ORDERED: ONDANSETRON 4 MG/2 ML VIAL ONE (06:18)
[2024-12-05] MEDS ORDERED: KETOROLAC 30 MG/ML INJ ONE (06:18)
[2024-12-05] MEDS ORDERED: Levofloxacin 750mg IV 750 MG/150 ML BAG IV ONE (06:18)
[2024-12-05] MEDS ORDERED: NA CHLORIDE 0.9% 1,000 ML ONE (06:18)
[2024-12-05 06:31] LABS: PT Prothrombin Time 12.4 SECONDS (10-13.0)
[2024-12-05 06:32] LABS: Protime INR 1.1
[2024-12-05 06:35] LABS: ALT/SGPT 38.0 U/L (16-61); AST/SGOT 18.0 U/L (15-37); Albumin 3.9 g/dL (3.4-5.0); Albumin/Globulin Ratio 1.3 (1.1-1.8); Alkaline Phosphatase 54.0 U/L (45-117); Anion Gap 6.2 mEq/L (5.0-15.0); BUN Blood Urea Nitrogen 19.0 mg/dL (7-18); Globulin 3.1 g/dL (2.3-3.5); Glucose Level 103.0 mg/dL (74-106); Potassium 4.2 mEq/L (3.5-5.1)
[2024-12-05 07:15] VITALS: BP 146/91; TEMP 97.7; O2SAT 96
== END 2024-12-05 07:11 | disposition short-term general hospital (02) ==
LOC: ER 04:51
DX: H16.001 Unspecified corneal ulcer, right eye (principal); S05.01XA Injury of conjunctiva and corneal abrasion without foreign body, right eye, initial encounter
CPT/HCPCS: 36415; 80053; 85025; 85610; 96374; 96375; 99285; J2405; J7030